=== PATIENT | male | born 1960 | race Caucasian/White ===

== ENCOUNTER 2020-04-09 11:08 | Emergency (ER) | payer OTHER ==
[2020-04-09] MEDS ORDERED: ALBUTEROL 2.5 MG/3 ML NEB SOL ONE ×2 (13:27)
[2020-04-09] MEDS ORDERED: NA CHLORIDE 0.9% 1,000 ML ONE (13:27)
[2020-04-09] MEDS ORDERED: ACETAMINOPHEN 500 MG TAB ONE (13:27)
[2020-04-09] MEDS ORDERED: ALBUTEROL INHALER 60 PUFF/8 GM IH ONE (14:14)
--- NOTE | 2020-04-09 14:19 | RAD REPORT ---
EXAM DESCRIPTION: RAD - Chest Single View - 04/09/2020 2:04 pm CLINICAL HISTORY: shortness of breath COMPARISON: None TECHNIQUE: AP portable chest image was obtained 04/09/2020 2:04 pm . FINDINGS: No dense mass or consolidation. Hazy opacification is seen lower left lung field. As a bas bairon study early left lung base pneumonia cannot be excluded. Failure and volume overload are not connor spected. Heart and vasculature are normal. No measurable pleural effusion and no pneumothorax. No acute bony abnormality seen. No acute aortic findings suspected. IMPRESSION: Baseline study showing hazy left base opacification suspicious for early infiltrate.
[2020-04-09 14:39] LABS: Absolute Lymphocytes (CBC) 0.6 K/uL (0.7-4.9); Basophils % 0.3 % (0-1.3); Hematocrit 46.1 % (39.6-49.0); Lymphocytes % 5.2 % (15.3-44.8); MPV 7.9 fL (7.6-11.3); RBC Red Blood Cell Count 5.16 M/uL (4.33-5.43)
[2020-04-09 14:58] LABS: Albumin 3.3 g/dL (3.4-5.0); Bilirubin Total 0.4 mg/dL (0.2-1.0); Potassium 3.7 mmol/L (3.5-5.1); Protein, Total 7.6 g/dL (6.4-8.2)
--- NOTE | 2020-04-09 15:20 | ER ---
Nurse's Notes [facility] Name: Richard Dawson Age: 60 yrs Sex: Male : 1960 Arrival Date: 04/09/2020 Time: 11:14 Bed 19 Private MD: Jarred Pablo H Diagnosis: Pneumonia Presentation: 04/09 11:37 Chief complaint: Patient states: taste is off, difficulty breathing, headache and fever ss that began 5 days ago. Pt reports his is sick too and was swabbed for COVID, but does not have her results back yet. Coronavirus screen: Proceed with normal triage. Patient denies a cough. Patient reports shortness of breath or difficulty breathing. Patient reports a measured and/or subjective temperature greater than 100.4F. Patient denies travel on a cruise ship or to a country the [facility] currently lists as an affected area. unknown contact. 's results are pending. Ebola Screen: Patient denies exposure to infectious person. Patient denies travel to an Ebola-affected area in the 21 days before illness onset. Initial Sepsis Screen: Does the patient meet any 2 criteria? Temp <36.0*C (96.8*F)) or > 38.3*C (100.9*F). HR > 90 bpm. Does the patient have a suspected source of infection? No. Patient's initial sepsis screen is negative. Risk Assessment: Do you want to hurt yourself or someone else? Patient reports no desire to harm self or others. Onset of symptoms was April 05, 2020. 11:37 Method Of Arrival: Ambulatory ss 11:37 Acuity: JENELLE 3 ss Triage Assessment: 15:00 Respiratory: the patient has moderate shortness of breath. Historical: - Allergies: 11:41 No Known Allergies; ss - Home Meds: 11:41 None [Active]; ss - PMHx: 11:41 None; ss - PSHx: 11:41 foot; hemrrhoidectomy; ss - Immunization history:: Adult Immunizations up to date. - Social history:: Smoking status: Patient denies any tobacco usage or history of. Screenin:00 Abuse screen: Denies threats or abuse. Nutritional screening: No deficits noted. Tuberculosis screening: No symptoms or risk factors identified. Fall Risk None identified. Assessment: 12:00 General: Appears in no apparent distress. Behavior is calm, cooperative, appropriate ah for age. Pain: Denies pain. Neuro: Level of Consciousness is awake, alert, obeys commands, Oriented to person, place, time, situation, Appropriate for age. Cardiovascular: Capillary refill < 3 seconds Patient's skin is warm and dry. Rhythm is sinus tachycardia. Respiratory: Reports shortness of breath wheezing Airway is patent Respiratory effort is even, labored, Respiratory pattern is regular, symmetrical, Breath sounds are coarse Onset: The symptoms/episode began/occurred 1 week. Derm: Skin is intact, is healthy with good turgor. 13:00 Reassessment: Patient and/or family updated on plan of care and expected duration. Pain ah level reassessed. No needs voiced at this time. 14:00 Reassessment: Patient and/or family updated on plan of care and expected duration. Pain ah level reassessed. Awaiting on results from labs and radiology. Vital Signs: 11:37 BP 124 / 87; Pulse 105; Resp 18; Temp 100.6(TE); Pulse Ox 98% on R/A; Weight 107.05 kg; ss Pain 5/10; ED Course: 11:14 Patient arrived in ED. mr 11:14 Jarred Pablo DO is Private Physician. mr 11:40 Triage completed. ss 11:41 Arm band placed on right wrist. ss 12:15 Inserted saline lock: 20 gauge in left antecubital area, using aseptic technique. 12:33 Umesh Mcclendon PA is PHCP. [facility] 12:33 Brett Mao MD is Attending Physician. [facility] 13:15 Jackie Vizcaino, RN is Primary Nurse. 14:04 Chest Single View XRAY In Process Unspecified. EDMS 14:30 Patient has correct armband on for positive identification. Bed in low position. Call light in reach. Pulse ox on. NIBP on. 15:00 IV discontinued, intact, bleeding controlled, No redness/swelling at site. Pressure ah dressing applied. 15:19 Jarred Pablo DO is Referral Physician. [facility] 15:53 No provider procedures requiring assistance completed. Administered Medications: 13:31 Not Given (inhaler instead): Albuterol 2.5 mg Inhalation every 20 minutes x3 14:20 Drug: Tylenol 1000 mg Route: PO; 15:31 Follow up: Response: No adverse reaction 14:25 Drug: NS 0.9% 1000 ml Route: IV; Rate: 1 bolus; Site: left antecubital; 15:32 Follow up: Response: No adverse reaction; IV Status: Completed infusion 14:27 Drug: Albuterol HFA Inhaler 2 puffs Route: Inhalation; 15:31 Follow up: Response: No adverse reaction 15:31 Drug: Rocephin 1 grams Route: IV; Rate: calculated rate; Site: left antecubital; 16:45 Follow up: Response: No adverse reaction; IV Status: Completed infusion Outcome: 15:15 Discharged to home ambulatory. 15:15 Condition: good 15:15 Discharge instructions given to patient, Instructed on discharge instructions, follow up and referral plans. Demonstrated understanding of instructions, follow-up care, medications, Prescriptions given X 2. 15:19 Discharge ordered by MD. moreno 15:56 Patient left the ED. Addendum: 04/14/2020 17:30 Addendum: COVID-19 Result: Positive result giiven to ED physician to notify pt. b Physician: Aldair Fischer MD Physician was able to contact pt and pt was notified of positive COVID-19 swab result. Physician answered pt questions. Other: [facility] [facility] called into [facility] per Dr. Fischer. Signatures: Dispatcher [employer] EDMS Umesh Mcclendon PA PA jmm Rivera, Mary mr Smirch, Shelby, RN RN Chelita Taylor RN RN Jackie Vizcaino RN RN Corrections: (The following items were deleted from the chart) 18:30 17:30 Addendum: COVID-19 Result: Positive result giiven to ED physician to notify pt. Physician: Aldair Fischer MD Other: [facility] called into [facility] per Dr. Fischer
--- NOTE | 2020-04-09 15:20 | EDPHYS ---
Physician Documentation [facility] Name: Richard Dawson Age: 60 yrs Sex: Male : 1960 Arrival Date: 04/09/2020 Time: 11:14 Bed 19 Private MD: Jarred Pablo H ED Physician Brett Mao HPI: 04/09 13:02 This 60 yrs old Male presents to ER via Ambulatory with complaints of Fever, jmm Breathing Difficulty. 13:02 The patient reports fever, not measured (subjective). Onset: The symptoms/episode jmm began/occurred gradually, 5 day(s) ago. Modifying factors: The patient has had contact with sick spouse. Associated signs and symptoms: Pertinent positives: cough, shortness of breath. This is a 60 year old male with no chronic medical conditions that presents to the ED with complaints of shortness of breath, cough beginning approx 5 days ago. recently diagnosed with covid-19. . Historical: - Allergies: 11:41 No Known Allergies; ss - Home Meds: 11:41 None [Active]; ss - PMHx: 11:41 None; ss - PSHx: 11:41 foot; hemrrhoidectomy; ss - Immunization history:: Adult Immunizations up to date. - Social history:: Smoking status: Patient denies any tobacco usage or history of. ROS: 13:02 Cardiovascular: Negative for chest pain, palpitations, and edema, Abdomen/GI: Negative jmm for abdominal pain, nausea, vomiting, diarrhea, and constipation, Back: Negative for injury and pain. 13:02 Constitutional: Positive for body aches, chills, fever. 13:02 Respiratory: Positive for cough. 13:02 Neuro: Positive for headache. 13:02 All other systems are negative. Exam: 13:02 Constitutional: This is a well developed, well nourished patient who is awake, alert, jmm and in no acute distress. Head/Face: atraumatic. Eyes: EOMI, no conjunctival erythema appreciated ENT: Moist Mucus Membranes Neck: Trachea midline, Supple Chest/axilla: Normal chest wall appearance and motion. Cardiovascular: Regular rate and rhythm. No edema appreciated Respiratory: Normal respirations, no respiratory distress appreciated Abdomen/GI: Non distended, soft Back: Normal ROM Skin: General appearance color normal MS/ Extremity: Moves all extremities, no obvious deformities appreciated, no edema noted to the lower extremities Neuro: Awake and alert, normal gait Psych: Behavior is normal, Mood is normal, Patient is cooperative and pleasant Vital Signs: 11:37 BP 124 / 87; Pulse 105; Resp 18; Temp 100.6(TE); Pulse Ox 98% on R/A; Weight 107.05 kg; ss Pain 5/10; MDM: 13:00 Patient medically screened. [facility] 15:18 Data reviewed: vital signs, nurses notes. Counseling: I had a detailed discussion with [facility] the patient and/or guardian regarding: the historical points, exam findings, and any diagnostic results supporting the discharge/admit diagnosis, lab results, radiology results, the need for outpatient follow up, to return to the emergency department if symptoms worsen or persist or if there are any questions or concerns that arise at home. ED course: Patient is alert and non toxic in appearance in the ED. Patient is advised to follow up with pcp and otherwise given strict return precautions. Patient understood and agrees with the plan of care. . 04/09 13:01 Order name: CBC with Diff; Complete Time: 15:01 [facility] 04/09 13:01 Order name: CMP; Complete Time: 15:01 [facility] 04/09 13:01 Order name: Procalcitonin; Complete Time: 15:18 [facility] 04/09 13:01 Order name: Lactate; Complete Time: 15:18 [facility] 04/09 13:01 Order name: Blood Culture Adult (2) [facility] 04/09 13:01 Order name: COVID-19 [facility] 04/09 13:01 Order name: Chest Single View XRAY; Complete Time: 14:20 [facility] 04/09 13:01 Order name: Saline Lock; Complete Time: 14:27 [facility] 04/09 13:01 Order name: Flu; Complete Time: 14:20 [facility] Administered Medications: 13:31 Not Given (inhaler instead): Albuterol 2.5 mg Inhalation every 20 minutes x3 ss 14:20 Drug: Tylenol 1000 mg Route: PO; 15:31 Follow up: Response: No adverse reaction 14:25 Drug: NS 0.9% 1000 ml Route: IV; Rate: 1 bolus; Site: left antecubital; 15:32 Follow up: Response: No adverse reaction; IV Status: Completed infusion 14:27 Drug: Albuterol HFA Inhaler 2 puffs Route: Inhalation; 15:31 Follow up: Response: No adverse reaction 15:31 Drug: Rocephin 1 grams Route: IV; Rate: calculated rate; Site: left antecubital; 16:45 Follow up: Response: No adverse reaction; IV Status: Completed infusion Disposition: 19:10 Co-signature as Attending Physician, Brett Mao MD. mi2 Disposition: 04/09/20 15:19 Discharged to Home. Impression: Pneumonia. - Condition is Stable. - Discharge Instructions: Community-Acquired Pneumonia, Adult. - Prescriptions for Zithromax Z- Sukhjinder 250 mg Oral Tablet - take 1 tablet by ORAL route as directed for 5 days Day 1 - take two (2) tablets one time. Day 2, 3, 4 , 5 take one (1) tablet once daily.; 6 tablet. Albuterol Sulfate 90 mcg/actuation - inhale 1-2 puff by INHALATION route every 4-6 hours; 1 Inhaler. - Medication Reconciliation Form, Thank You Letter, Antibiotic Education, Prescription Opioid Use form. - Follow up: Samy, DO Jarred; When: 2 - 3 days; Reason: Recheck today's complaints, Continuance of care, Re-evaluation by your physician. Signatures: Dispatcher [employer] EDMS Umesh Mcclendon PA PA jmm Smirch, Shelby, RN RN Brett Mao MD MD [facility] Jackie Vizcaino RN RN Corrections: (The following items were deleted from the chart) 15:56 15:19 04/09/2020 15:19 Discharged to Home. Impression: Pneumonia. Condition is Stable. Forms are Medication Reconciliation Form, Thank You Letter, Antibiotic Education, Prescription Opioid Use. Follow up: Jarred Pablo; When: 2 - 3 days; Reason: Recheck today's complaints, Continuance of care, Re-evaluation by your physician. tiffanie
[2020-04-09] MEDS ORDERED: CEFTRIAXONE/SWI 1gm 1 GM/10 ML SYR ONE (15:32)
[2020-04-09 16:00] VITALS: BP 124/87; TEMP 100.6; O2SAT 98
== END 2020-04-09 15:56 | disposition home or self-care (01) ==
LOC: ER 11:08
DX: U07.1 COVID-19 (principal); J12.89 Other viral pneumonia
CPT/HCPCS: 96365; 96361; 87040 ×2; 85025; 36415; 83605; 80053; 84145; 87804 ×2; 71045; 99285; U0001; J0696; J7030

== ENCOUNTER 2020-04-16 09:19 | Inpatient (IN) | payer OTHER ==
[2020-04-16] MEDS ORDERED: LEVALBUTEROL 1.25 MG/3 ML NEB ONE (10:18)
[2020-04-16] MEDS ORDERED: AZITHROMYCIN 250 MG TAB ONE (10:18)
[2020-04-16] MEDS ORDERED: NA CHLORIDE 0.9% 100 ML IV ONE (10:18)
[2020-04-16] MEDS ORDERED: dexAMETHasone 10 MG/ML VIAL ONE (10:18)
[2020-04-16] MEDS ORDERED: CEFTRIAXONE/SWI 1gm 1 GM/10 ML SYR ONE (10:19)
--- NOTE | 2020-04-16 10:35 | RAD REPORT ---
EXAM DESCRIPTION: RAD - Chest Single View - 04/16/2020 10:25 am CLINICAL HISTORY: DYSPNEA Chest pain. COMPARISON: Chest Single View dated 04/09/2020 FINDINGS: Portable technique limits examination quality. Extensive bilateral pulmonary opacities are present probably representing multifocal pneumonia. The h eart is normal in size. No displaced fractures. IMPRESSION: Extensive bilateral multifocal pneumonia.
[2020-04-16 11:19] LABS: Absolute Lymphocytes (CBC) 1.1 K/uL (0.7-4.9); Basophils % 1.1 % (0-1.3); Hematocrit 43.8 % (39.6-49.0); Lymphocytes % 9.1 % (15.3-44.8); MPV 7.6 fL (7.6-11.3); RBC Red Blood Cell Count 4.88 M/uL (4.33-5.43)
[2020-04-16 11:22] LABS: Protime INR 1.4
--- NOTE | 2020-04-16 11:35 | EDPHYS ---
Physician Documentation [facility] Name: Richard Dawson Age: 60 yrs Sex: Male : 1960 Arrival Date: 04/16/2020 Time: 09:20 Bed 16 Private MD: Jarred Pablo H ED Physician Aldair Fischer HPI: 04/16 10:00 This 60 yrs old Male presents to ER via Ambulatory with complaints of kdr Shortness Of Breath - covid+. 10:00 The patient has shortness of breath at rest, with light activity. Onset: The kdr symptoms/episode began/occurred gradually, 1 week(s) ago. Duration: The symptoms are continuous, and are steadily getting worse. The patient's shortness of breath is aggravated by coughing, exertion, light activity, talking, walking, is alleviated by nothing. Historical: - Allergies: 09:40 No Known Allergies; ss - Home Meds: 09:40 None [Active]; ss - PMHx: :40 None; ss - PSHx: 09:40 foot; hemrrhoidectomy; ss - Immunization history:: Adult Immunizations up to date. - Social history:: Smoking status: Patient denies any tobacco usage or history of. ROS: 11:35 Constitutional: Negative for fever, chills, and weight loss, Eyes: Negative for injury, kdr pain, redness, and discharge, Neck: Negative for injury, pain, and swelling, Cardiovascular: Negative for chest pain, palpitations, and edema, Abdomen/GI: Negative for abdominal pain, nausea, vomiting, diarrhea, and constipation, Back: Negative for injury and pain, : Negative for injury, bleeding, discharge, and swelling, MS/Extremity: Negative for injury and deformity, Skin: Negative for injury, rash, and discoloration, Neuro: Negative for headache, weakness, numbness, tingling, and seizure activity. Psych: Negative for depression, anxiety, suicide ideation, homicidal ideation, and hallucinations, Allergy/Immunology: Negative for hives, rash, and allergies, Endocrine: Negative for neck swelling, polydipsia, polyuria, polyphagia, and marked weight changes, Hematologic/Lymphatic: Negative for swollen nodes, abnormal bleeding, and unusual bruising. 11:35 Respiratory: Positive for cough, with no reported sputum, dyspnea on exertion, shortness of breath, at rest. wheezing, inspiratory. Exam: 11:35 Constitutional: This is a well developed, well nourished patient who is awake, alert, kdr and in no acute distress. Head/Face: Normocephalic, atraumatic. Eyes: Pupils equal round and reactive to light, extra-ocular motions intact. Lids and lashes normal. Conjunctiva and sclera are non-icteric and not injected. Cornea within normal limits. Periorbital areas with no swelling, redness, or edema. Neck: Trachea midline, no thyromegaly or masses palpated, and no cervical lymphadenopathy. Supple, full range of motion without nuchal rigidity, or vertebral point tenderness. No Meningismus. Chest/axilla: Normal chest wall appearance and motion. Nontender with no deformity. No lesions are appreciated. Cardiovascular: Regular rate and rhythm with a normal S1 and S2. No gallops, murmurs, or rubs. Normal PMI, no JVD. No pulse deficits. Abdomen/GI: Soft, non-tender, with normal bowel sounds. No distension or tympany. No guarding or rebound. No evidence of tenderness throughout. Back: No spinal tenderness. No costovertebral tenderness. Full range of motion. Skin: Warm, dry with normal turgor. Normal color with no rashes, no lesions, and no evidence of cellulitis. MS/ Extremity: Pulses equal, no cyanosis. Neurovascular intact. Full, normal range of motion. Neuro: Awake and alert, GCS 15, oriented to person, place, time, and situation. Cranial nerves II-XII grossly intact. Motor strength 5/5 in all extremities. Sensory grossly intact. Cerebellar exam normal. Normal gait. Psych: Awake, alert, with orientation to person, place and time. Behavior, mood, and affect are within normal limits. 11:35 Respiratory: mild respiratory distress is noted, Respirations: labored breathing, that is mild, Breath sounds: rales, that are mild, are scattered, rhonchi, are not appreciated, stridor, is not appreciated. 15:14 ECG was reviewed by the Attending Physician. kdr Vital Signs: 09:36 BP 120 / 95; Pulse 107; Resp 20; Temp 98.7(TE); Pulse Ox 90% on R/A; Weight 99.79 kg; ss Height 5 ft. 9 in. (175.26 cm); Pain 0/10; 12:00 BP 125 / 67; Pulse 104; Resp 28; Pulse Ox 90% on 2 lpm NC; bp 12:57 BP 115 / 85; Pulse 105; Resp 31; Pulse Ox 86% on R/A; bp 15:00 BP 109 / 84; Pulse 92; Resp 29; Pulse Ox 92% on 4 lpm NC; bp 16:30 BP 118 / 88; Pulse 90; Resp 61; Pulse Ox 92% on 3 lpm NC; bp 18:00 BP 128 / 86; Pulse 93; Resp 31; Pulse Ox 90% on 3 lpm NC; bp 19:07 BP 118 / 83; Pulse 91; Resp 26; Temp 98.7; Pulse Ox 91% on 4 lpm NC; mg2 20:19 BP 121 / 88; Pulse 94; Resp 24; Temp 98.7; Pulse Ox 91% on 4 lpm NC; mg2 09:36 Body Mass Index 32.49 (99.79 kg, 175.26 cm) ss MDM: 11:35 Patient medically screened. kdr 11:35 Data reviewed: vital signs, nurses notes, lab test result(s), radiologic studies. kdr Counseling: I had a detailed discussion with the patient and/or guardian regarding: the historical points, exam findings, and any diagnostic results supporting the discharge/admit diagnosis, lab results, radiology results, the need for further work-up and treatment in the hospital. Physician consultation: Dandy Smith DO regarding admission, and will see patient in ED. 04/16 09:47 Order name: Blood Culture Adult (2) eb 04/16 09:47 Order name: BMP; Complete Time: 12:27 eb 04/16 09:47 Order name: C-Reactive Protein; Complete Time: 12:27 eb 04/16 09:47 Order name: CBC with Diff; Complete Time: 11:33 eb 04/16 11:33 Interpretation: MCV 89.8. kdr 04/16 09:47 Order name: COVID-19 eb 04/16 09:47 Order name: D-Dimer; Complete Time: 11:33 eb 04/16 09:47 Order name: Ferritin; Complete Time: 12:27 eb 04/16 09:47 Order name: Flu; Complete Time: 12:27 eb 04/16 09:47 Order name: Lactate; Complete Time: 12:27 04/16 09:47 Order name: LFT's; Complete Time: 12:27 04/16 09:47 Order name: Lipase; Complete Time: 12:27 04/16 09:47 Order name: Procalcitonin; Complete Time: 12:27 04/16 09:47 Order name: PT-INR; Complete Time: 11:33 04/16 09:47 Order name: Ptt, Activated; Complete Time: 11:33 04/16 09:47 Order name: Strep; Complete Time: 12:27 04/16 09:47 Order name: Troponin (emerg Dept Use Only); Complete Time: 12:27 04/16 09:47 Order name: Urine Microscopic Only 04/16 09:47 Order name: CXR XRAY; Complete Time: 11:33 04/16 09:47 Order name: EKG; Complete Time: 09:48 04/16 09:47 Order name: Cardiac monitoring; Complete Time: 11:24 04/16 09:47 Order name: Document PUI#; Complete Time: 18:07 04/16 11:30 Order name: CT Chest For PE Angio; Complete Time: 12:27 [facility] 04/16 12:24 Order name: Throat Culture [facility] 04/16 18:22 Order name: Urine Dipstick--Ancillary (enter results) 04/16 18:30 Order name: Urine Dipstick-Ancillary [facility] 04/16 09:47 Order name: Droplet/Contact Precautions; Complete Time: 09:53 04/16 09:47 Order name: EKG - Nurse/Tech; Complete Time: 11:24 04/16 09:47 Order name: IV Start; Complete Time: 11:24 04/16 09:47 Order name: Labs collected and sent; Complete Time: 11:24 04/16 09:47 Order name: Notify Health Dept [phone]/ ; Complete Time: 18:07 04/16 09:47 Order name: O2 Per Protocol; Complete Time: 09:53 04/16 09:47 Order name: O2 Sat Monitoring; Complete Time: 09:53 04/16 09:47 Order name: Urine Dipstick-Ancillary (obtain specimen); Complete Time: 18:07 eb EC:14 Rate is 85 beats/min. Rhythm is regular, Normal Sinus Rhythm. QRS Moran is Normal. Left kdr axis deviation noted. NM interval is normal. QRS interval is normal. Clinical impression: NSR w/ Non-specific ST/T Changes. Administered Medications: 11:05 Drug: Decadron - Dexamethasone 10 mg Route: IVP; Site: left wrist; bp 11:41 Follow up: Response: No adverse reaction bp 11:05 Drug: Rocephin - (cefTRIAXone) 1 grams Route: IVPB; Infused Over: 30 mins; Site: left bp wrist; 11:41 Follow up: IV Status: Completed infusion; IV Intake: 20ml bp 11:05 Drug: Zithromax 500 mg Route: PO; bp 11:42 Follow up: Response: No adverse reaction bp 11:05 Drug: Xopenex (3) 1.25 mg Route: Inhalation; bp 11:45 Drug: Lovenox 1 mg/kg Route: Sub-Q; Site: left lower abdomen; bp 12:32 Follow up: Response: No adverse reaction bp Disposition: 04/16/20 11:35 Hospitalization ordered by Dandy Smith for Inpatient Admission. Preliminary diagnosis is COVID 19 +, multi-focal pneumonia. - Bed requested for Telemetry/MedSurg (Inpatient). - Status is Inpatient Admission. mg2 - Condition is Fair. - Problem is an ongoing problem. - Symptoms have worsened. Signatures: Dispatcher [employer] EDMS Aldair Fischer MD MD kdr Lindsay Fragoso RN RN Jose R Zhang FNP-C [employer] Ravinder Gunderson, KASEY RN bp Baylee Hays Saeed Zavala RN RN mg2 Corrections: (The following items were deleted from the chart) 09:54 09:47 Richardson ordered. eb bp 18:50 11:35 Hospitalization Ordered by Dandy Smith DO for Inpatient Admission. Preliminary eb diagnosis is COVID 19 +, multi-focal pneumonia. Bed requested for Telemetry/MedSurg (Inpatient). Status is Inpatient Admission. Condition is Fair. Problem is an ongoing problem. Symptoms have worsened. kdr 21:01 18:50 04/16/2020 11:35 Hospitalization Ordered by Dandy Prezas DO for Inpatient mg2 Admission. Preliminary diagnosis is COVID 19 +, multi-focal pneumonia. Bed requested for Telemetry/MedSurg (Inpatient). Status is Inpatient Admission. Condition is Fair. Problem is an ongoing problem. Symptoms have worsened. eb
--- NOTE | 2020-04-16 11:35 | ER ---
Nurse's Notes [facility] Name: Richard Dawson Age: 60 yrs Sex: Male : 1960 Arrival Date: 04/16/2020 Time: 09:20 Bed 16 Private MD: Jarred Pablo H Diagnosis: COVID 19 +, multi-focal pneumonia Presentation: 04/16 09:36 Chief complaint: Patient states: shortness of breath that x 1 week. Pt was told Sunday his swab was positive for COVID-19. Pt reports his shortness of breath is worse. Coronavirus screen: Surgical mask placed on patient. Patient moved to private room, placed in contact and droplet isolation with eye protection until further assessment. Ebola Screen: Patient denies exposure to infectious person. Patient denies travel to an Ebola-affected area in the 21 days before illness onset. Initial Sepsis Screen: Does the patient meet any 2 criteria? No. Patient's initial sepsis screen is negative. Does the patient have a suspected source of infection? No. Patient's initial sepsis screen is negative. Risk Assessment: Do you want to hurt yourself or someone else? Patient reports no desire to harm self or others. Onset of symptoms was April 08, 2020. 09:36 Method Of Arrival: Ambulatory ss 09:36 Acuity: JENELLE 3 ss Triage Assessment: 09:45 General: Appears in no apparent distress. uncomfortable, ill, Behavior is cooperative, bp appropriate for age, anxious. Pain: Denies pain. EENT: No deficits noted. Neuro: No deficits noted. Cardiovascular: Rhythm is regular. Respiratory: Reports shortness of breath cough that is. Respiratory: Onset: The symptoms/episode began/occurred at an unknown time. the patient has moderate shortness of breath. GI: No signs and/or symptoms were reported involving the gastrointestinal system. : No signs and/or symptoms were reported regarding the genitourinary system. Derm: No deficits noted. Musculoskeletal: No deficits noted. Historical: - Allergies: 09:40 No Known Allergies; ss - Home Meds: 09:40 None [Active]; ss - PMHx: 09:40 None; ss - PSHx: 09:40 foot; hemrrhoidectomy; ss - Immunization history:: Adult Immunizations up to date. - Social history:: Smoking status: Patient denies any tobacco usage or history of. Screenin:00 Abuse screen: Denies threats or abuse. Denies injuries from another. Nutritional bp screening: No deficits noted. Tuberculosis screening: No symptoms or risk factors identified. Fall Risk None identified. Assessment: 09:45 General: SEE TRIAGE NOTE. Cardiovascular: Rhythm is sinus tachycardia. bp 12:00 Reassessment: PT RETURNED FROM CT. ADMIT INITIATED. bp 12:58 Reassessment: PT SEEN BY HOSPITALIST. bp 15:00 Reassessment: ADMIT IN PROCESS. VS STABLE ON MONITOR. bp 16:30 Reassessment: ADMIT REMAINS IN PROCESS. VS STABLE ON MONITOR. PT REQUIRING 4LNC TO bp REMAIN >90% SPO2. 18:00 Respiratory: Airway is patent Respiratory effort is even, labored, Breath sounds are bp coarse bilaterally. 19:56 Reassessment: Patient appears in no apparent distress at this time. Patient and/or mg2 family updated on plan of care and expected duration. Pain level reassessed. Patient is alert, oriented x 3, equal unlabored respirations, skin warm/dry/pink. Called 4th floor and charge nurse said the primary nurse will call back to receive report. Vital Signs: 09:36 BP 120 / 95; Pulse 107; Resp 20; Temp 98.7(TE); Pulse Ox 90% on R/A; Weight 99.79 kg; ss Height 5 ft. 9 in. (175.26 cm); Pain 0/10; 12:00 BP 125 / 67; Pulse 104; Resp 28; Pulse Ox 90% on 2 lpm NC; bp 12:57 BP 115 / 85; Pulse 105; Resp 31; Pulse Ox 86% on R/A; bp 15:00 BP 109 / 84; Pulse 92; Resp 29; Pulse Ox 92% on 4 lpm NC; bp 16:30 BP 118 / 88; Pulse 90; Resp 61; Pulse Ox 92% on 3 lpm NC; bp 18:00 BP 128 / 86; Pulse 93; Resp 31; Pulse Ox 90% on 3 lpm NC; bp 19:07 BP 118 / 83; Pulse 91; Resp 26; Temp 98.7; Pulse Ox 91% on 4 lpm NC; mg2 20:19 BP 121 / 88; Pulse 94; Resp 24; Temp 98.7; Pulse Ox 91% on 4 lpm NC; mg2 09:36 Body Mass Index 32.49 (99.79 kg, 175.26 cm) ED Course: 09:20 Patient arrived in ED. as 09:20 Jarred Pablo DO is Private Physician. as 09:28 Ravinder Gunderson, KASEY is Primary Nurse. bp 09:28 Aldair Fischer MD is Attending Physician. kdr 09:39 Triage completed. ss 09:40 Arm band placed on right wrist. ss 10:00 Patient has correct armband on for positive identification. Bed in low position. Call bp light in reach. Side rails up X2. 10:24 CXR XRAY In Process Unspecified. EDMS 11:05 Inserted saline lock: 20 gauge in left wrist, using aseptic technique. Blood collected. bp 11:34 Dandy Smith DO is Hospitalizing Provider. kdr 11:49 CT Chest For PE Angio In Process Unspecified. EDMS 18:18 No provider procedures requiring assistance completed. Patient admitted, IV remains in bp place. 20:50 Primary Nurse role handed off by Ravinder Gunderson RN sg 20:52 Nataliia Uribe RN is Primary Nurse. ls4 Administered Medications: 11:05 Drug: Decadron - Dexamethasone 10 mg Route: IVP; Site: left wrist; bp 11:41 Follow up: Response: No adverse reaction bp 11:05 Drug: Rocephin - (cefTRIAXone) 1 grams Route: IVPB; Infused Over: 30 mins; Site: left bp wrist; 11:41 Follow up: IV Status: Completed infusion; IV Intake: 20ml bp 11:05 Drug: Zithromax 500 mg Route: PO; bp 11:42 Follow up: Response: No adverse reaction bp 11:05 Drug: Xopenex (3) 1.25 mg Route: Inhalation; bp 11:45 Drug: Lovenox 1 mg/kg Route: Sub-Q; Site: left lower abdomen; bp 12:32 Follow up: Response: No adverse reaction bp Intake: 11:41 IV: 20ml; Total: 20ml. bp Outcome: 11:35 Decision to Hospitalize by Provider. kdr 20:19 Admitted to Tele accompanied by tech, via wheelchair, room 425, with oxygen, with mg2 chart, Report called to KASEY Rubalcava 20:19 Condition: stable 20:19 Instructed on the need for admit, Demonstrated understanding of instructions. 21:01 Patient left the ED. mg2 Signatures: Dispatcher [employer] EDMS Talib Bernabe RN RN sg Aldair Fischer MD MD kdr Martinez, Amelia as Smirch, Shelby, RN RN ss Ravinder Gunderson RN RN bp Saeed Zavala RN RN mg2 Nataliia Uribe RN RN ls4 Corrections: (The following items were deleted from the chart) 12:58 12:00 BP 125 / 67; Pulse 104bpm; Resp 28bpm; Pulse Ox 90% RA; bp bp 18:19 18:07 Admitted to ER Hold. Please see [facility] for further documentation. bp bp 18:19 18:07 Condition: stable bp bp 18:19 18:07 Instructed on the need for admit, bp bp 18:19 18:00 Reassessment: PT ER HOLD, SEE [employer] bp bp
[2020-04-16 11:58] LABS: ALT/SGPT 48 U/L (12-78); AST/SGOT 41 U/L (15-37); Albumin 2.2 g/dL (3.4-5.0); Alkaline Phosphatase 122 U/L (45-117); BUN Blood Urea Nitrogen 19 mg/dL (7-18); Bicarbonate 25 mmol/L (21-32); Bilirubin Direct 0.2 mg/dL (0-0.2); Bilirubin Total 0.5 mg/dL (0.2-1.0); Ferritin 2200.2 ng/mL (26-388); Glucose Level 103 mg/dL (74-106); Lipase 343 U/L (73-393); Potassium 3.4 mmol/L (3.5-5.1); Sodium Level 135 mmol/L (136-145); Troponin (Emerg Dept Use Only) < 0.02 ng/mL (0.0-0.045)
--- NOTE | 2020-04-16 12:04 | RAD REPORT ---
EXAM DESCRIPTION: CT - Chest For Pe Angio - 04/16/2020 11:49 am CLINICAL HISTORY: Chest pain. Cough;Dyspnea COMPARISON: No comparisonsChest Single View dated 04/16/2020 TECHNIQUE: CT angiogram of the pulmonary arteries was performed with MIP. All CT scans are performed using dose optimization technique as appropriate and may include automated exposure control or mA/KV adjustment according to patient size. FINDINGS: No evidence of pulmonary thromboembolism. No acute aortic finding demonstrated. Extensive bilateral airspace/alveolar lung opacities are present compatible with pneumonia or ARDS. No significant pericardial or pleural fluid. No concerning bony finding. IMPRESSION: No evidence of pulmonary thromboembolism. Extensive bilateral alveolar lung opacities are present likely representing bilateral pneumonia or AR DS.
[2020-04-16] MEDS ORDERED: ENOXAPARIN 100 MG/ML SYR SQ ONE (12:15)
--- NOTE | 2020-04-16 13:49 | P.HP ---
Certification for Inpatient Patient admitted to: Inpatient With expected LOS: <2 Midnights Patient will require the following post-hospital care: None Practitioner: I am a practitioner with admitting privileges, knowledge of patient current condition, hospital course, and medical plan of care. Services: Services provided to patient in accordance with Admission requirements found in Title 42 Section 412.3 of the Code of Federal Regulations <Jose R Zhang - Last Filed: 04/16/20 13:42> Patient History Date of Service: 04/16/20 Reason for admission: COVID-pneumonia, hypoxia History of Present Illness: 60-year-old male with no medical history presents emergency department with worsening shortness of breath. Patient reports that he tested positive for COVID-19 within last week at another facility. Patient reports that he has been progressively short of breath since then with worsening cough. Patient also has had fever at home. Upon presentation to the emergency department patient's oxygen saturation was around 90%. Patient extensive multifocal pneumonia on CT and chest x-ray. Patient received antibiotics, steroids, breathing treatments, auction emergency department. ED provider wishes to admit patient for further evaluation and management. When I saw the patient in the emergency department he was on 3 L per nasal cannula. I turn the oxygen off and he was 86% on room air while resting in the stretcher. Patient be admitted for further evaluation management. - Past Medical/Surgical History Has patient received pneumonia vaccine in the past: No Diabetic: No -: none -: none Psychosocial/ Personal History: Patient lives at home with - Family History Family History: Reviewed- Non-Contributory - Social History Smoking Status: Never smoker Alcohol use: Yes CD- Drugs: No Caffeine use: No Place of Residence: Home <Jose R Zhang - Last Filed: 04/16/20 13:42> Date of Service: 04/16/20 Home medications list reviewed: Yes <Dandy Smith - Last Filed: 04/16/20 18:42> Allergies povidone-iodine [From Betadine] Allergy (Verified 12/08/11 20:14) Hives/Rash soap [From Betadine] Allergy (Verified 12/08/11 20:14) Hives/Rash Review of Systems General: Fever, Weakness, Malaise Eyes: Unremarkable ENT: Unremarkable Respiratory: Cough, Shortness of Breath, SOB with Excertion Cardiovascular: Unremarkable Gastrointestinal: Unremarkable Genitourinary: Unremarkable Musculoskeletal: Unremarkable Integumentary: Unremarkable Neurological: Unremarkable Lymphatics: Unremarkable <Jose R Zhang - Last Filed: 04/16/20 13:42> Physical Examination - Physical Exam General: Alert, In no apparent distress, Oriented x3 HEENT: Atraumatic, Normocephalic Neck: Supple Respiratory: Crackles/rales, Expiratory wheezes, Other (Tachypneic) Cardiovascular: Normal pulses, Regular rate/rhythm, Normal S1 S2 Capillary refill: <2 Seconds Gastrointestinal: Normal bowel sounds, Soft and benign Musculoskeletal: No contractures, No erythema, No tenderness Integumentary: No tenderness/swelling, No erythema, No warmth Neurological: Normal gait, Normal strength at 5/5 x4 extr, Normal tone, Sensation intact - Studies Laboratory Data (last 24 hrs) 04/16/20 11:05: PT 16.4 H, INR 1.40, APTT 30.4 04/16/20 11:05: WBC 12.3 H D, Hgb 14.6, Hct 43.8, Plt Count 563 H D 04/16/20 11:05: Sodium 135 L, Potassium 3.4 L, BUN 19 H, Creatinine 0.80, Glucose 103, Total Bilirubin 0.5, AST 41 H, ALT 48, Alkaline Phosphatase 122 H, Lipase 343 Microbiology Data (last 24 hrs): 04/16/20 10:40 Nasopharnyx Influenza Type A Antigen Screen - Final 04/16/20 10:40 Nasopharnyx Influenza Type B Antigen Screen - Final 04/16/20 10:40 Throat Group A Streptococcus Rapid Screen - Final <Jose R Zhang - Last Filed: 04/16/20 13:42> - Studies Laboratory Data (last 24 hrs) 04/16/20 11:05: PT 16.4 H, INR 1.40, APTT 30.4 04/16/20 11:05: WBC 12.3 H D, Hgb 14.6, Hct 43.8, Plt Count 563 H D 04/16/20 11:05: Sodium 135 L, Potassium 3.4 L, BUN 19 H, Creatinine 0.80, Glucose 103, Total Bilirubin 0.5, AST 41 H, ALT 48, Alkaline Phosphatase 122 H, Lipase 343 Microbiology Data (last 24 hrs): 04/16/20 10:40 Nasopharnyx Coronavirus COVID-19 PCR - Final 04/16/20 10:40 Nasopharnyx Influenza Type A Antigen Screen - Final 04/16/20 10:40 Nasopharnyx Influenza Type B Antigen Screen - Final 04/16/20 10:40 Throat Group A Streptococcus Rapid Screen - Final <Dandy Smith - Last Filed: 04/16/20 18:42> Assessment and Plan - Plan Assessment Dyspnea and Hypoxia secondary to COVID-19 pneumonia Plan Dyspnea and Hypoxia secondary to COVID-19 pneumonia: Pulmonology has been consulted on this case. Will continue with thiamine, zinc, Decadron, oxygen therapy. Patient appeared dry in the ED with tachypneic. Patient given a small fluid bolus fall in emergency department. Can continue with Lasix as per pulmonology recommendations if patient is better hydrated tomorrow. Will provide patient with Lovenox 40 milligrams/kilogram subcutaneous once daily for DVT prophylaxis. This can be increased to Lovenox 1 milligram/kilogram twice daily if patient continues to deteriorate clinically. Patient on telemetry du ring this hospitalization. Patient will be placed on electrolyte protocols. Anticipate clinical improvement in the next 48-72 hr. Discharge Plan: Home Plan to discharge in: Greater than 2 days - Advance Directives Does patient have a Living Will: No Does patient have a Durable POA for Healthcare: No - Code Status/Comfort Care Code Status Assessed: Yes (Patient is full code) Critical Care: No Time Spent Managing Pts Care (In Minutes): 55 <Jose R Zhang - Last Filed: 04/16/20 13:42> - Plan Case discussed in detail with nurse practitioner. Agree with evaluation, assessment and plan of care. Will consult pulmonology for further recommendations. Will continue IV Decadron. Will maintain oxygen above 93%. Continue DVT prophylaxis. Will monitor closely. Anticipate improvement over the next 3 days. <Dandy Smith - Last Filed: 04/16/20 18:42>
[2020-04-16 18:28] LABS: Urine Blood NEGATIVE (NEG); Urine Glucose NEGATIVE (NEG); Urine Protein 1+ (NEG); Urine pH 5.5 (5.0-7.0)
[2020-04-16 18:51] LABS: Urine Bacteria <20 /HPF (NONE SEEN); Urine Culture Reflex Order NOT NEEDED; Urine Mucus 1+ /HPF (NONE SEEN); Urine RBC <5 /HPF (NONE SEEN)
[2020-04-16] MEDS ORDERED: ENOXAPARIN 40 MG/0.4 ML SQ ONE (21:47)
[2020-04-16] MEDS ORDERED: ONDANSETRON 4 MG/2 ML VIAL IV PRN (21:47)
[2020-04-16] MEDS ORDERED: ACETAMINOPHEN 500 MG TAB PO PRN (21:47)
[2020-04-16] MEDS ORDERED: NA CHLORIDE 0.9% 500 ML IV ONE (21:47)
[2020-04-16] MEDS ORDERED: POTASSIUM CL SA 10 MEQ TAB PO ONE (21:54)
[2020-04-16] MEDS ORDERED: TRAZODONE 50 MG TABLET PO ONE (22:01)
[2020-04-16 23:16] VITALS: BMI 32.7
[2020-04-17 07:17] LABS: Absolute Lymphocytes (CBC) 1.1 K/uL (0.7-4.9); BUN Blood Urea Nitrogen 23 mg/dL (7-18); Basophils % 0.3 % (0-1.3); Bicarbonate 28 mmol/L (21-32); Glucose Level 118 mg/dL (74-106); Hematocrit 40.2 % (39.6-49.0); Lymphocytes % 10.7 % (15.3-44.8); MPV 7.7 fL (7.6-11.3); Magnesium 2.8 mg/dL (1.8-2.4); Potassium 4.4 mmol/L (3.5-5.1); RBC Red Blood Cell Count 4.48 M/uL (4.33-5.43); Sodium Level 141 mmol/L (136-145)
[2020-04-17] MEDS: THIAMINE HCL 100 MG TABLET PO SCH (08:02)
[2020-04-17] MEDS: ZINC SULFATE 220 MG CAP PO SCH (08:03)
[2020-04-17] MEDS: CEFTRIAXONE/SWI 1gm 1 GM/10 ML SYR IV SCH (08:03)
[2020-04-17] MEDS: dexAMETHasone 10 MG/ML VIAL IV SCH ×2 (08:47→16:05)
[2020-04-17] MEDS: SPIRONOLACTONE 25 MG TABLET PO SCH (08:48)
[2020-04-17] MEDS: FUROSEMIDE 20 MG/ 2ML VIAL IV SCH (08:53)
[2020-04-17] MEDS ORDERED: FUROSEMIDE 20 MG/ 2ML VIAL IV SCH (09:00)
[2020-04-17] MEDS ORDERED: dexAMETHasone 4 MG TAB PO SCH (09:00)
[2020-04-17] MEDS ORDERED: AZITHROMYCIN IV 500 MG in NA CHLORIDE 0.9% 250 ML IVPB SCH (09:00)
--- NOTE | 2020-04-17 10:05 | P.CNS ---
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 this still coughing short of breath Allergies povidone-iodine [From Betadine] Allergy (Verified 12/08/11 20:14) Hives/Rash soap [From Betadine] Allergy (Verified 12/08/11 20:14) Hives/Rash Home Medications: NK [No Home Meds] 04/16/20 - Past Medical/Surgical History Diabetic: No -: none -: Foot surgery x 2 , bunions -: internal hemorrhoids surgery Psychosocial/ Personal History: Patient lives at home with - Family History Mother History Unknown: Yes Medical History: Diabetes - Social History Alcohol use: Yes CD- Drugs: No Caffeine use: Yes Place of Residence: Home Review of Systems General: Weakness Respiratory: Cough, Shortness of Breath Physical Examination Temp Pulse Resp BP Pulse Ox 97.8 F 83 22 H 126/80 93 04/16/20 22:00 04/17/20 08:53 04/16/20 22:00 04/17/20 08:53 04/16/20 22:00 Laboratory Data (last 24 hrs) 04/16/20 11:05: PT 16.4 H, INR 1.40, APTT 30.4 04/16/20 11:05: WBC 12.3 H D, Hgb 14.6, Hct 43.8, Plt Count 563 H D 04/16/20 11:05: Sodium 135 L, Potassium 3.4 L, BUN 19 H, Creatinine 0.80, Glucose 103, Total Bilirubin 0.5, AST 41 H, ALT 48, Alkaline Phosphatase 122 H, Lipase 343 - Problems (1) Pneumonia due to human coronavirus Current Visit: Yes Status: Acute Plan: Patient is 60 years of age admitted with pneumonia secondary to townsend wire D- dimer is markedly elevated otherwise labs are unremarkable IV increase the dose of Decadron low-dose diuretics anti RANJITH negative fluid balance will try him on high-flow oxygen CT scan reviewed anti coagulated
[2020-04-17] MEDS: APIXABAN 2.5 MG TABLET PO SCH ×2 (10:46→21:08)
--- NOTE | 2020-04-17 11:25 | P.PN ---
Subjective Date of Service: 04/17/20 Chief Complaint: COVID-pneumonia, hypoxia Subjective: No new changes, No C/O voiced Review of Systems General: Unremarkable Eyes: Unremarkable ENT: Unremarkable Respiratory: Cough, Shortness of Breath Cardiovascular: Unremarkable Gastrointestinal: Unremarkable Genitourinary: Unremarkable Musculoskeletal: Unremarkable Integumentary: Unremarkable Neurological: Unremarkable Lymphatics: Unremarkable Physical Examination - Vital Signs Temperature: 98.1 F Blood Pressure: 126/80 Pulse: 83 Respirations: 20 Pulse Ox (%): 92 - Physical Exam General: Alert, In no apparent distress, Oriented x3 HEENT: Atraumatic, Normocephalic Neck: Supple Respiratory: Diminished, Expiratory wheezes, Other (Moderate atypia, moderate respiratory distress) Cardiovascular: No edema, Normal pulses, Regular rate/rhythm, Normal S1 S2 Capillary refill: <2 Seconds Gastrointestinal: Normal bowel sounds, Soft and benign Musculoskeletal: No contractures, No erythema, No tenderness Integumentary: No erythema, No warmth Neurological: Normal gait, Normal speech, Normal strength at 5/5 x4 extr, Normal tone - Studies Laboratory Data (last 24 hrs) 04/16/20 11:05: PT 16.4 H, INR 1.40, APTT 30.4 04/16/20 11:05: Sodium 135 L, Potassium 3.4 L, BUN 19 H, Creatinine 0.80, Glucose 103, Total Bilirubin 0.5, AST 41 H, ALT 48, Alkaline Phosphatase 122 H, Lipase 343 Microbiology Data (last 24 hrs): 04/16/20 10:40 Nasopharnyx Coronavirus COVID-19 PCR - Final 04/16/20 10:40 Nasopharnyx Influenza Type A Antigen Screen - Final 04/16/20 10:40 Nasopharnyx Influenza Type B Antigen Screen - Final 04/16/20 10:40 Throat Group A Streptococcus Rapid Screen - Final Assessment & Plan Discharge Plan: Home Plan to discharge in: Greater than 2 days Physician Review Additional Text: Assessment Acute respiratory failure with hypoxia secondary to Covid-19 pneumonia Plan Acute respiratory failure with hypoxia secondary to Covid-19 pneumonia: Pulmonology has been consulted this case. Patient was intermittently on BiPAP overnight, this morning he was on nasal cannula at 5 L and satting approximately 90%. Patient was tachypneic and desaturated with any movement or speaking. Patient was placed on high-flow nasal cannula at that time. Patient is tolerating high-flow nasal cannula well, will continue with Decadron, diuretics, Lovenox, thiamine, zinc. Discussed the use of convalescent plasma with both patient and , they are both amenable. Will continue with the process of obtaining convalescent plasma for this patient. Anticipate clinical improvement in the next 48-72 hr. Critical Care: No Time Spent Managing Pts Care (In Minutes): 55
[2020-04-17] MEDS ORDERED: NA CHLORIDE 0.9% 250 ML ONE (21:05)
[2020-04-18] MEDS: dexAMETHasone 10 MG/ML VIAL IV SCH ×3 (01:00→16:23)
[2020-04-18 06:58] LABS: Absolute Lymphocytes (CBC) 1.1 K/uL (0.7-4.9); Basophils % 0.2 % (0-1.3); Hematocrit 40.4 % (39.6-49.0); MPV 7.3 fL (7.6-11.3); RBC Red Blood Cell Count 4.54 M/uL (4.33-5.43)
[2020-04-18 07:13] LABS: BUN Blood Urea Nitrogen 28 mg/dL (7-18); Bicarbonate 26 mmol/L (21-32); Glucose Level 126 mg/dL (74-106); Magnesium 2.7 mg/dL (1.8-2.4); Potassium 4.4 mmol/L (3.5-5.1); Sodium Level 141 mmol/L (136-145)
[2020-04-18] MEDS: THIAMINE HCL 100 MG TABLET PO SCH (07:57)
[2020-04-18] MEDS: FUROSEMIDE 20 MG/ 2ML VIAL IV SCH (07:57)
[2020-04-18] MEDS: CEFTRIAXONE/SWI 1gm 1 GM/10 ML SYR IV SCH (07:58)
[2020-04-18] MEDS: ZINC SULFATE 220 MG CAP PO SCH (07:58)
[2020-04-18] MEDS: SPIRONOLACTONE 25 MG TABLET PO SCH (07:58)
[2020-04-18] MEDS: APIXABAN 2.5 MG TABLET PO SCH ×2 (07:59→20:16)
[2020-04-18] MEDS ORDERED: FUROSEMIDE 20 MG TABLET PO SCH (09:00)
--- NOTE | 2020-04-18 10:24 | P.PN ---
Subjective Date of Service: 04/18/20 Chief Complaint: COVID-pneumonia, hypoxia Subjective: Improving (Patient is doing better still has some cough) Review of Systems General: Weakness Respiratory: Cough, Shortness of Breath Physical Examination - Vital Signs Temperature: 97.9 F Blood Pressure: 126/82 Pulse: 84 Respirations: 16 Pulse Ox (%): 95 - Studies Microbiology Data (last 24 hrs): 04/16/20 10:40 Throat Culture & Sensitivity - Final NORMAL UPPER RESPIRATORY JACQUES GROWN. Assessment & Plan - Problems (Diagnosis) (1) Pneumonia due to human coronavirus Current Visit: Yes Status: Acute Plan: Patient has clinically improved is doing better will wean him off high-flow oxygen change him over to nasal cannula patient is requiring less than 6 L of nasal can oxygen probably discharge on prednisone 10 mg twice a day for 10 days eyes is coughing add an Advair inhaler continue with low-dose spironolactone for about a week
--- NOTE | 2020-04-18 11:05 | P.PN ---
Subjective Date of Service: 04/18/20 Chief Complaint: COVID-pneumonia, hypoxia Subjective: No new changes, No C/O voiced, Improving Review of Systems 10-point ROS is otherwise unremarkable Respiratory: Cough, Shortness of Breath Physical Examination - Vital Signs Temperature: 97.9 F Blood Pressure: 126/82 Pulse: 84 Respirations: 16 Pulse Ox (%): 95 - Physical Exam General: Alert, In no apparent distress HEENT: Atraumatic, PERRLA, EOMI Neck: Supple, JVD not distended Respiratory: Other (Tachypneic, diminished bilaterally, mild respiratory distress) Cardiovascular: Regular rate/rhythm, Normal S1 S2 Gastrointestinal: Normal bowel sounds, No tenderness Musculoskeletal: No tenderness Integumentary: No rashes Neurological: Normal speech, Normal tone, Normal affect Lymphatics: No axilla or inguinal lymphadenopathy - Studies Microbiology Data (last 24 hrs): 04/16/20 10:40 Throat Culture & Sensitivity - Final NORMAL UPPER RESPIRATORY JACQUES GROWN. Assessment & Plan Discharge Plan: Home Plan to discharge in: 48 Hours - Code Status/Comfort Care Code Status Assessed: Yes (Patient is full code) Physician Review Additional Text: Assessment Acute respiratory failure with hypoxia secondary to Covid-19 pneumonia Plan Acute respiratory failure with hypoxia secondary to Covid-19 pneumonia: Patient received convalescent plasma yesterday, patient is on high-flow oxygen therapy at this time. Patient is improving and requiring less oxygen. Will continue with steroids. Pulmonology leaves patient is progressing well, will wean off oxygen as tolerated. Anticipate clinical improvement discharge next 48-72 hr. Critical Care: No Time Spent Managing Pts Care (In Minutes): 55
[2020-04-18 11:07] LABS: Blood Morphology Comment NOT SEEN (NOT SEEN); Platelet Estimate INCR; Urine White Blood Cell Casts OK
[2020-04-19] MEDS: dexAMETHasone 10 MG/ML VIAL IV SCH ×2 (00:09→09:00)
[2020-04-19 04:33] LABS: Absolute Lymphocytes (CBC) 1.2 K/uL (0.7-4.9); Basophils % 0.2 % (0-1.3); Hematocrit 42.2 % (39.6-49.0); Lymphocytes % 10.2 % (15.3-44.8); MPV 7.5 fL (7.6-11.3); RBC Red Blood Cell Count 4.67 M/uL (4.33-5.43)
[2020-04-19 04:37] LABS: BUN Blood Urea Nitrogen 28 mg/dL (7-18); Bicarbonate 25 mmol/L (21-32); Glucose Level 122 mg/dL (74-106); Magnesium 2.7 mg/dL (1.8-2.4); Potassium 5.1 mmol/L (3.5-5.1); Sodium Level 140 mmol/L (136-145)
[2020-04-19] MEDS ORDERED: dexAMETHasone 4 MG/ML VIAL IV SCH (09:00)
[2020-04-19] MEDS: ZINC SULFATE 220 MG CAP PO SCH (09:16)
[2020-04-19] MEDS: THIAMINE HCL 100 MG TABLET PO SCH (09:16)
[2020-04-19] MEDS: APIXABAN 2.5 MG TABLET PO SCH ×2 (09:17→20:57)
[2020-04-19] MEDS: FUROSEMIDE 20 MG/ 2ML VIAL IV SCH (09:17)
[2020-04-19] MEDS: SPIRONOLACTONE 25 MG TABLET PO SCH (09:17)
--- NOTE | 2020-04-19 11:00 | P.PN ---
Subjective Date of Service: 04/19/20 Chief Complaint: COVID-pneumonia, hypoxia Subjective: Improving (Patient is improving sick change to nasal cannula oxygen Re to go home) Review of Systems General: Weakness Respiratory: Cough, Shortness of Breath Physical Examination - Vital Signs Temperature: 98.6 F Blood Pressure: 131/91 Pulse: 83 Respirations: 18 Pulse Ox (%): 94 - Physical Exam General: Other (To for) - Studies Microbiology Data (last 24 hrs): 04/16/20 10:40 Throat Culture & Sensitivity - Final NORMAL UPPER RESPIRATORY JACQUES GROWN. Assessment & Plan - Problems (Diagnosis) (1) Pneumonia due to human coronavirus Current Visit: Yes Status: Acute Plan: Patient is doing better he will qualify for home O2 recommend discharge home on low-dose spironolactone 25 mg daily prednisone 10 mg twice daily for 1 week antibiotics not needed labs reviewed follow up with me in 2 weeks
[2020-04-19] MEDS: dexAMETHasone 4 MG/ML VIAL IV SCH (17:44)
--- NOTE | 2020-04-19 18:29 | P.PN ---
Subjective Date of Service: 04/19/20 Chief Complaint: COVID-pneumonia, hypoxia Subjective: Improving Physical Examination - Vital Signs Temperature: 98.5 F Blood Pressure: 135/77 Pulse: 84 Respirations: 20 Pulse Ox (%): 95 - Physical Exam General: Alert HEENT: Atraumatic Neck: Supple Respiratory: Clear to auscultation bilaterally Cardiovascular: Normal pulses Neurological: Normal speech, Normal strength at 5/5 x4 extr, Normal tone, Normal affect - Studies Medications List Reviewed: Yes Assessment & Plan Discharge Plan: Home Plan to discharge in: 24 Hours Physician Review Additional Text: Assessment Acute respiratory failure with hypoxia secondary to Covid-19 pneumonia Plan Acute respiratory failure with hypoxia secondary to Covid-19 pneumonia: Patient Sir requiring high-flow oxygen. Continue to wean off. Anticipate improvement over the next 1-2 days. Patient received plasma yesterday. Will monitor closely. Will discuss with pulmonology. May require home oxygen at discharge. Time Spent Managing Pts Care (In Minutes): 55
[2020-04-20] MEDS: dexAMETHasone 4 MG/ML VIAL IV SCH ×3 (00:20→16:00)
[2020-04-20] MEDS: APIXABAN 2.5 MG TABLET PO SCH (07:54)
[2020-04-20] MEDS: THIAMINE HCL 100 MG TABLET PO SCH (07:55)
[2020-04-20] MEDS: ZINC SULFATE 220 MG CAP PO SCH (07:55)
[2020-04-20] MEDS: SPIRONOLACTONE 25 MG TABLET PO SCH (07:56)
[2020-04-20] MEDS: FUROSEMIDE 20 MG/ 2ML VIAL IV SCH (07:56)
[2020-04-20] MEDS ORDERED: ACETYLCYST 20% 800 MG/4 ML VIAL PO SCH (09:00)
--- NOTE | 2020-04-20 13:02 | P.DS ---
Admission Date: 04/16/20 Discharge Date: 04/20/20 Primary Care Provider: unknown Disposition: ROUTINE DISCHARGE Discharge Condition: GOOD Reason for Admission: COVID-pneumonia, hypoxia Consultations: Pulmonary-Dr. Smith Procedures: CT scan: FINDINGS: No evidence of pulmonary thromboembolism. No acute aortic finding demonstrated. Extensive bilateral airspace/alveolar lung opacities are present compatible with pneumonia or ARDS. No significant pericardial or pleural fluid. No concerning bony finding. IMPRESSION: No evidence of pulmonary thromboembolism. Extensive bilateral alveolar lung opacities are present likely representing bilateral pneumonia or ARDS. Medical problem list: Acute respiratory failure with hypoxia secondary to Covid-19 bilateral pneumonia Brief History of Present Illness: 60-year-old male presented to the emergency room with increasing shor tness of breath. Patient recently evaluated for COVID and tested positive. Prior to admission patient was having more short of breath. Patient found to have bilateral viral pneumonia with hypoxia. Patient required hospitalization. Hospital Course: Patient presented to the ER with increasing shortness of breath. He was tested positive prior to admission. He was admitted for acute respiratory failure with hypoxia secondary to Covid-[address] scan revealed no pulmonary embolism. Bilateral pneumonia identified. Patient was seen by pulmonology. Patient required high-flow oxygen. Patient did receive convalescent plasma with improvement. Patient has done well and able to perform ADLs. Patient feels much better. Patient still on oxygen per nasal cannula. At discharge patient will continue with home oxygen. Currently on 4 L per nasal cannula. Home oxygen will be arranged prior to discharge. At discharge patient will also continue with prednisone 10 mg 1 pill twice daily for 7 days. Pulmonology also suggest Aldactone 25 mg daily for 7 days. Patient will also continue with thiamine 100 mg daily and zinc sulfate 1 daily. Patient will continue with aspirin 81 mg daily. Recommend follow up with pulmonology in 1 week to monitor progress. Patient will continue quarantine for 14 days. Health department will follow patient closely. Continue CDC guidelines. Continue social distancing, hand washing and facemask use. Vital Signs/Physical Exam: Temp Pulse Resp BP Pulse Ox 98.0 F 94 H 18 132/86 94 04/20/20 11:50 04/20/20 11:50 04/20/20 11:50 04/20/20 11:50 04/20/20 11:50 General: Alert, In no apparent distress, Oriented x3, Cooperative HEENT: Atraumatic Neck: Supple Respiratory: Clear to auscultation bilaterally Cardiovascular: Normal pulses, Regular rate/rhythm Gastrointestinal: Normal bowel sounds, No masses, No rebound, No guarding Neurological: Normal speech, Normal strength at 5/5 x4 extr, Normal tone, Normal affect Laboratory Data at Discharge: WBC 11.8 K/uL (4.3-10.9) H 04/19/20 03:36 Hgb 14.1 g/dL (13.6-17.9) 04/19/20 03:36 Hct 42.2 % (39.6-49.0) 04/19/20 03:36 Plt Count 680 K/uL (152-406) H 04/19/20 03:36 PT 16.4 SECONDS (9.5-12.5) H 04/16/20 11:05 INR 1.40 04/16/20 11:05 APTT 30.4 SECONDS (24.3-36.9) 04/16/20 11:05 Sodium 140 mmol/L (136-145) 04/19/20 03:36 Potassium 5.1 mmol/L (3.5-5.1) 04/19/20 03:36 BUN 28 mg/dL (7-18) H 04/19/20 03:36 Creatinine 0.79 mg/dL (0.55-1.3) 04/19/20 03:36 Glucose 122 mg/dL (74-106) H 04/19/20 03:36 Magnesium 2.7 mg/dL (1.8-2.4) H 04/19/20 03:36 Total Bilirubin 0.5 mg/dL (0.2-1.0) 04/16/20 11:05 AST 41 U/L (15-37) H 04/16/20 11:05 ALT 48 U/L (12-78) 04/16/20 11:05 Alkaline Phosphatase 122 U/L (45-117) H 04/16/20 11:05 Lipase 343 U/L (73-393) 04/16/20 11:05 Home Medications: Aspirin [Aspirin EC 81 MG] 81 mg PO DAILY #90 tablet.dr 04/20/20 Spironolactone [Aldactone*] 25 mg PO DAILY #7 tab 04/20/20 Thiamine HCl [Vitamin B-1*] 100 mg PO DAILY #30 tablet 04/20/20 Zinc Sulfate [Zinc Sulfate*] 220 mg PO DAILY #30 cap 04/20/20 predniSONE [Deltasone*] 10 mg PO BID #14 tab 04/20/20 New Medications: Spironolactone [Aldactone*] 25 mg PO DAILY #7 tab Aspirin [Aspirin EC 81 MG] 81 mg PO DAILY #90 tablet. predniSONE [Deltasone*] 10 mg PO BID #14 tab Thiamine HCl [Vitamin B-1*] 100 mg PO DAILY #30 tablet Zinc Sulfate [Zinc Sulfate*] 220 mg PO DAILY #30 cap Patient Discharge Instructions: 1. Recommend follow up with PCP in 1 week to follow up this hospitalization. 2. Patient presented to the ER with increasing shortness of breath. He was tested positive prior to admission. He was admitted for acute respiratory failure with hypoxia secondary to Covid-[address] scan revealed no pulmonary embolism. Bilateral pneumonia identified. Patient was seen by pulmonology. Patient required high-flow oxygen. Patient did receive convalescent plasma with improvement. Patient has done well and able to perform ADLs. Patient feels much better. Patient still on oxygen per nasal cannula. At discharge patient will continue with home oxygen. Currently on 4 L per nasal cannula. Home oxygen will be arranged prior to discharge. At discharge patient will also continue with prednisone 10 mg 1 pill twice daily for 7 days. Pulmonology also suggest Aldactone 25 mg daily for 7 days. Patient will also continue with thiamine 100 mg daily and zinc sulfate 1 daily. Patient will continue with aspirin 81 mg daily. Recommend follow up with pulmonology in 1 week to monitor progress. Patient will continue quarantine for 14 days. Health department will follow patient closely. Continue CDC guidelines. Continue social distancing, hand washing and facemask use. Diet: AHA Activity: Ad agnes Time spent managing pt's care (in minutes): 55
[2020-04-20 15:06] VITALS: O2SAT 94
[2020-04-20 15:44] VITALS: BP 140/101; TEMP 97.8
== END 2020-04-20 17:00 | disposition home or self-care (01) | DRG 177 ==
LOC: ER 09:19 → ERHOLD 13:12 → 4TH 20:25
PROVIDERS: ADMIT Family Medicine; ATTEND Family Medicine
PROC: 5A09357 Assistance with Respiratory Ventilation, Less than 24 Consecutive Hours, Continuous Positive Airway Pressure (ICD-10-PCS; principal; 2020-04-16)
DX: U07.1 COVID-19 (principal); J12.89 Other viral pneumonia; J96.01 Acute respiratory failure with hypoxia
CPT/HCPCS: 36415; 36430; 71045; 71275; 80048; 80076; 81003; 81015; 82728; 83605; 83690; 83735; 84145; 84484; 85025; 85379; 85610; 85730; 86140; 86850; 86900; 86901; 86927; 87040; 87070; 87081; 87804; 93005; 94660; 94760; 96365; 96372; 96375; 99285; J0456; J0696; J1100; J1650; J1940; J7040; J7050; J8540; Q9967; U0002

== ENCOUNTER 2024-03-16 08:59 | Inpatient (IN) | payer OTHER ==
--- OUTSIDE RECORDS SUMMARY | 2024-03-16 09:02 | XMS REPORT | Continuity of Care Document ---
Author Name Unknown Address [address] [place] [address] [employer] Address [address] [place] [address] Care Team Providers Care Employment Director Name Role Phone Unavailable Unavailable Unavailable Encounters Start Date/Time End Date/Time Encounter Type Admission Type Attending Clinicians Care Facility Care Department Encounter ID Source 2022-03-23 08:49:03 Outpatient [facility] [id number] [facility]
[2024-03-16] MEDS ORDERED: NA CHLORIDE 0.9% 3,000 ML ONE (09:28)
[2024-03-16 09:43] LABS: Absolute Lymphocytes (CBC) 0.5 K/uL (0.7-4.9); Absolute Monocytes 0.5 K/uL (0.1-1.3); Absolute Neutrophil 11.3 K/uL (1.8-8.0); Basophils % 0.2 % (0-1.3); Eosinophils % 0.2 % (0-4.4); Hematocrit 51.1 % (39.6-49.0); Hemoglobin 17.2 g/dL (13.6-17.9); Lymphocytes % 3.9 % (15.3-44.8); MCH 29.8 pg (27.0-35.0); MCHC 33.6 g/dL (32.0-36.0); MCV 88.6 fL (80-100); MPV 8.7 fL (7.6-11.3); Monocytes % 3.9 % (3.3-12.3); Neutrophils % 91.8 % (41.7-73.7); Platelets 168 thou/uL (152-406); RBC Red Blood Cell Count 5.76 M/uL (4.33-5.43); Red Cell Distribution Width 14.1 % (12.1-15.2)
[2024-03-16 09:49] LABS: PT Prothrombin Time 11.8 SECONDS (9.5-12.5); Protime INR 1.07
[2024-03-16 09:57] LABS: Specific Gravity > 1.030 (1.005-1.030); Sqamous Epithelial None Seen /HPF (None Seen); Urine Bacteria None Seen /HPF (<20); Urine Bilirubin NEGATIVE (Negative); Urine Blood 1+ (Negative); Urine Clarity Turbid (Clear); Urine Color Yellow (Yellow); Urine Culture Reflex Order NOT NEEDED; Urine Glucose NEGATIVE (Negative); Urine Ketones 2+ (Negative); Urine Microscopic Reflex YN ORDER UMIC; Urine Mucus Slight /HPF (None Seen); Urine Nitrite NEGATIVE (Negative); Urine Protein 2+ (Negative); Urine RBC <5 /HPF (None Seen); Urine Urobilinogen 2+ (Normal); Urine WBC <5 /HPF (<5)
[2024-03-16] MEDS ORDERED: ENOXAPARIN 100 MG/ML SYR SQ ONE (10:01)
[2024-03-16 10:02] LABS: Albumin 2.9 g/dL (3.4-5.0); Albumin/Globulin Ratio 0.7 (1.1-1.8); Anion Gap 14.4 mEq/L (5.0-15.0); Bilirubin Total 1.4 mg/dL (0.2-1.0); Globulin 3.9 g/dL (2.3-3.5); Potassium 3.4 mEq/L (3.5-5.1); Protein, Total 6.8 g/dL (6.4-8.2)
[2024-03-16 10:06] LABS: Troponin High Sensitivity 228.1 pg/mL (<58.9)
[2024-03-16 10:14] LABS: Blood Morphology Comment NOT SEEN (NOT SEEN); Platelet Estimate ADEQ; White Blood Cell Scan OK (OK)
--- NOTE | 2024-03-16 10:35 | RAD REPORT ---
EXAM DESCRIPTION: RAD - Chest Single View - 03/16/2024 10:26 am CLINICAL HISTORY: Fever;SOB COMPARISON: Chest Single View dated 04/16/2020; Chest Single View dated 04/09/2020 FINDINGS: Lines: None. Lungs: No evidence of edema or pneumonia. Pleural: No significant pleural effusions or pneumothorax. Cardiac: The heart size is within normal limits. Mediastinum: Within normal limits. Bones: No acute fractures. Other: None IMPRESSION: No acute cardiopulmonary disease.
--- NOTE | 2024-03-16 11:09 | RAD REPORT ---
EXAM DESCRIPTION: CT - Chest For Pe Angio - 03/16/2024 11:01 am CLINICAL HISTORY: DYSPNEA COMPARISON: Chest For Pe Angio dated 04/16/2020 TECHNIQUE: Dynamically enhanced axial 3 mm thick images of the chest were obtained during administra tion of <100> mL Isovue 370 IV contrast. Coronal and oblique reconstruction images were generated and reviewed. Exam utilizes a protocol for optimal evaluation of pulmonary arterial tree. Maximum intensity projections 3D imaging was utilized All CT scans are performed using dose optimization technique as appropriate and may include automated exposure control or mA/KV adjustment according to patient size. FINDINGS: Chest Wall: No suspicious thyroid nodules or pathologic lymphadenopathy. Lungs: No acute abnormality. Subtle mild bilateral ground-glass opacities probably sequela of remote viral pneumonia. Pleura: No significant effusions or pneumothorax. Mediastinum/kirt: No pathologic lymphadenopathy. Pulmonary arteries/Aorta: No filling defect identified. No aortic aneurysm. Heart: Trace pericardial effusion. Mild cardiomegaly. Coronary calcifications. Upper abdomen: No acute abnormality.Several low-density liver lesions are noted which are unchanged s 2019 and almost certainly benign. Bones: No acute abnormality. IMPRESSION: Negative for pulmonary embolism. No other acute process identified. Suspected chronic alexandra ng changes.
--- NOTE | 2024-03-16 11:18 | EDPHYS ---
Physician Documentation [facility] Name: Richard Dawson Age: 63 yrs Sex: Male : 1960 Arrival Date: 03/16/2024 Time: 08:59 Bed 6 Private MD: ED Physician Jeff Robison HPI: 03/16 09:02 This 63 yrs old Male presents to ER via Unassigned with complaints of Shortness Of jh7 Breath, General Weakness. 09:02 The patient has shortness of breath at rest. Onset: The symptoms/episode began/occurred jh7 3 day(s) ago, and became worse today. Associated signs and symptoms: Pertinent positives: non-productive cough, dizziness, fever, body aches. 63-year-old male with no past medical history presents to the ER for fever since Sunday with shortness of breath, weakness, decreased urination, and dark urine starting on Sunday. The patient reports that since he was seen in the ED on , he has had a persistent fever. He is currently on Augmentin and reports that his symptoms have not improved. He denies chest pain, syncope, or any other symptoms at this time.. Historical: - Allergies: 09:17 Iodine; ss - Home Meds: :17 None [Active]; ss - PMHx: 09:17 None; ss - Immunization history:: Adult Immunizations up to date, Client reports receiving the 2nd dose of the Covid vaccine. - Infectious Disease History:: Denies. - Social history:: Smoking status: Patient denies any tobacco usage or history of. ROS: 09:02 Constitutional: Per HPI jh7 Exam: 09:02 Constitutional: The patient appears alert, awake, obviously ill, jh7 09:02 Head/Face: Normocephalic, atraumatic. Neck: Trachea midline, no thyromegaly or masses jh7 palpated, and no cervical lymphadenopathy. Supple, full range of motion without nuchal rigidity, or vertebral point tenderness. No Meningismus. 09:02 Abdomen/GI: Soft, non-tender, with normal bowel sounds. No distension or tympany. No guarding or rebound. No evidence of tenderness throughout. Back: No spinal tenderness. No costovertebral tenderness. Full range of motion. Skin: Warm, dry with normal turgor. Normal color with no rashes, no lesions, and no evidence of cellulitis. MS/ Extremity: Pulses equal, no cyanosis. Neurovascular intact. Full, normal range of motion. Neuro: Awake and alert, GCS 15, oriented to person, place, time, and situation. Motor strength 5/5 in all extremities. Sensory grossly intact. Normal gait. 09:02 Cardiovascular: Rate: tachycardic, actual rate is 145 bpm, Rhythm: irregularly irregular, Pulses: Pulses are 3+ in right radial artery and left radial artery. 09:02 Respiratory: mild respiratory distress is noted, Respirations: tachypnea, 24 Breath sounds: decreased breath sounds, that are mild, are located in both bases, Vital Signs: 09:13 BP 117 / 92; Pulse 144; Resp 24; Temp 99.3; Pulse Ox 95% on R/A; Weight 99.79 kg; ss Height 5 ft. 10 in. ; Pain 0/10; 09:16 Pulse 140; Resp 32; Pulse Ox 97% ; db 09:30 BP 123 / 97; Pulse 141; Resp 30; Pulse Ox 94% on R/A; db 10:00 BP 124 / 93; Pulse 125; Resp 25; Pulse Ox 94% on R/A; db 11:22 BP 112 / 94; Pulse 127; Resp 28; Pulse Ox 96% on R/A; db 11:55 BP 118 / 80; Pulse 127; Resp 28; Pulse Ox 95% on R/A; db 12:30 BP 115 / 84; Pulse 123; Resp 28; Pulse Ox 95% on R/A; db 09:13 Body Mass Index 31.57 (99.79 kg, 177.8 cm) ss 09:13 Pain Scale: Adult ss MDM: 09:02 Patient medically screened. [facility] 11:21 Differential diagnosis: CHF exacerbation, Myocardial Infarction pneumonia, Pneumothorax [facility] pulmonary edema, Pulmonary Embolism Sepsis ALINA, rhabdomyolysis. Antibiotic administration: Not indicated, the patient has a suspected viral illness, No source found. Relayed this information to the hospitalist.. Data interpreted: Pulse oximetry: is 94 %. Interpretation: acceptable. Data reviewed: vital signs, nurses notes, lab test result(s), EKG, radiologic studies, CT scan, plain films. Consideration of Admission/Observation Patient was admitted/placed on observation. Management of patient was discussed with the following: Hospitalist: Jose R Zhang CASUALTY CLAIM ADJUSTER with Dr. Johnson. Remelt Operator: Dr. Guzman, cardiology. Informed him that the patient's heart rate was 122. He advised not giving anything for rate control at this time and to continue to monitor patient.. I considered the following discharge prescriptions or medication management in the emergency department Medications were administered in the Emergency Department. See MAR. Independent interpretation of the following test(s) in the Emergency Department EKG: See my EKG interpretation above. Historians other than the Patient: Spouse/Significant Other: . Scoring Tools PERC Rule for PE Age >/= 50 Yes HR >/= 100 Yes O2 Sat Room Air < 95% Yes. Counseling: I had a detailed discussion with the patient and/or guardian regarding the historical points, exam findings, and any diagnostic results supporting the discharge/admit diagnosis, the need for further work-up and treatment in the hospital. Response to treatment: the patient's symptoms have mildly improved after treatment. 03/16 09:12 Order name: Blood Culture Adult (2) [facility] 03/16 09:12 Order name: CBC with Diff; Complete Time: 10:15 [facility] 03/16 09:12 Order name: CMP; Complete Time: 10:13 [facility] 03/16 09:12 Order name: Lactate w/ 2H reflex if indic.; Complete Time: 10: [facility] 03/16 09:12 Order name: Protime (+inr); Complete Time: 09:55 [facility] 03/16 09:12 Order name: Ptt, Activated; Complete Time: 09:55 [facility] 03/16 09:12 Order name: Urinalysis w/ reflexes; Complete Time: 10:06 [facility] 03/16 09:12 Order name: Troponin High Sensitivity; Complete Time: 10:13 [facility] 03/16 09:44 Order name: CK; Complete Time: 10:13 [facility] 03/16 09:47 Order name: CBC Smear Scan; Complete Time: 10:15 [facility] 03/16 09:59 Order name: Glucose, Ancillary Testing; Complete Time: 10:06 [facility] 03/16 11:15 Order name: BNP; Complete Time: 11:58 [facility] 03/16 11:59 Order name: Lactate w/ 2H reflex if indic. db 03/16 12:46 Order name: Lactate w/ 2H reflex if indic.; Complete Time: 16:16 [facility] 03/16 09:12 Order name: Chest Single View XRAY; Complete Time: 10:40 [facility] 03/16 10:20 Order name: CT Chest For PE Angio; Complete Time: 11:10 [facility] 03/16 09:12 Order name: Accucheck; Complete Time: 09:47 [facility] 03/16 09:12 Order name: Cardiac monitoring; Complete Time: 09:16 [facility] 03/16 09:12 Order name: EKG - Nurse/Tech; Complete Time: 09:16 [facility] 03/16 09:12 Order name: IV Saline Lock - Large Bore; Complete Time: 09:48 [facility] 03/16 09:12 Order name: Labs collected and sent; Complete Time: 09:41 [facility] 03/16 09:12 Order name: O2 Per Protocol; Complete Time: 09:16 [facility] 03/16 09:12 Order name: O2 Sat Monitoring; Complete Time: 09:16 [facility] 03/16 09:12 Order name: Vital Signs; Complete Time: 09:16 [facility] EC:02 Rate is 145 beats/min. Rhythm is irregular. QRS [place] is Normal. QRS interval is normal [facility] at 84 msec. QT interval is normal at 338 msec. No Q waves. T waves are Normal. No ST changes noted. Clinical impression: Atrial Fibrillation. Administered Medications: 09:14 Not Given (Duplicate Order): ns 0.9% 1000 ml IV at 1 bolus Per protocol; 1000 mL bolus [facility] 09:42 Drug: NS 0.9% IV (30 ml/kg) 30 ml/kg IV at bolus once; Sepsis Protocol Route: IV; Rate: db bolus; Site: right antecubital; 12:04 Follow up: Response: No adverse reaction; IV Status: Completed infusion; IV Intake: db 3000ml 10:08 Drug: Enoxaparin Sub-Q 1 mg/kg Sub-Q once Route: Sub-Q; Site: right lower abdomen; db 12:04 Follow up: Response: No adverse reaction db Point of Care Testing: Blood Glucose: 09:49 Blood Glucose: 141 mg/dL; db Ranges: Critical Glucose Levels:Adult <50 mg/dl or >400 mg/dl <40 mg/dl or >180 mg/dl Disposition Summary: 03/16/24 11:18 Hospitalization Ordered Notes: Hospitalization Status: Inpatient Admission [facility] Provider: Andrew Johnson [facility] Location: Telemetry/MedSurg (Inpatient) [facility] Condition: Stable [facility] Problem: new [facility] Symptoms: are unchanged [facility] Bed/Room Type: Standard [facility] Room Assignment: [id number](03/16/24 11:41) Diagnosis - New onset atrial fibrillation 7 - Other viral pneumonia [facility] - Elevated Troponin 7 - Elevated Lactate [facility] Forms: - Medication Reconciliation Form [facility] - SBAR form [facility] - Leadership Thank You Letter [facility] Signatures: Dispatcher [employer] EDMS Yina Schaffer, TRAFFIC COURT MAGISTRATE-C [address] MAGISTRATE-Csnw Lindsay Sandoval, RN RN Shannon Huffman FNP TRAFFIC COURT MAGISTRATE [facility] Fatemeh Patel, RN RN db Corrections: (The following items were deleted from the chart) 09:13 09:12 BLOOD CULTURE*+BA.LAB.BRZ ordered. EDMS EDMS 09:13 09:12 CBC+H.LAB.BRZ ordered. EDMS EDMS 09:13 09:12 COMPREHENSIVE METABOLIC PANEL+C.LAB.BRZ ordered. EDMS EDMS 09:13 09:12 LACTATE+C.LAB.BRZ ordered. EDMS EDMS 09:13 09:12 PROTIME (+INR)+COAG.LAB.BRZ ordered. EDMS EDMS 09:13 09:12 PTT, ACTIVATED+COAG.LAB.BRZ ordered. EDMS EDMS 09:13 09:12 Urinalysis+U.LAB.BRZ ordered. EDMS EDMS 09:13 09:12 Troponin High Sensitivity+C.LAB.BRZ ordered. EDMS EDMS 11:41 11:18 [facility] ss
--- NOTE | 2024-03-16 11:18 | ER ---
Nurse's Notes [facility] Name: Richard Dawson Age: 63 yrs Sex: Male : 1960 Arrival Date: 03/16/2024 Time: 08:59 Bed 6 Private MD: Diagnosis: New onset atrial fibrillation;Other viral pneumonia;Elevated Troponin;Elevated Lactate Presentation: 03/16 09:13 Chief complaint: Patient states: Seen in ER and tested negative for Covid and Flu on ss . PT reports fever is still persistent, and now has some shortness of breath and severe fatigue. Ebola Screen: Patient denies exposure to infectious person. Patient denies travel to an Ebola-affected area in the 21 days before illness onset. Initial Sepsis Screen: Does the patient meet any 2 criteria? RR > 20 per min. HR > 90 bpm. Does the patient have a suspected source of infection? No. Patient's initial sepsis screen is negative. Risk Assessment: Do you want to hurt yourself or someone else? Patient reports no desire to harm self or others. Onset of symptoms was March 12, 2024. 09:13 Method Of Arrival: Ambulatory ss 09:13 Acuity: JENELLE 2 ss 09:25 Coronavirus screen: Client denies travel out of the [place] in the last 14 days. At this db time, the client does not indicate any symptoms associated with coronavirus-19. Triage Assessment: 09:17 General: Appears uncomfortable, ill, Behavior is calm, cooperative. Pain: Denies pain. ss Neuro: Level of Consciousness is awake, alert, obeys commands, Oriented to person, place, time, situation. Respiratory: Reports shortness of breath Airway is patent Respiratory effort is even, Respiratory pattern is tachypnea. Derm: Skin is intact, Skin is clammy, Skin is pink. Historical: - Allergies: 09:17 Iodine; ss - Home Meds: 09:17 None [Active]; ss - PMHx: 09:17 None; ss - Immunization history:: Adult Immunizations up to date, Client reports receiving the 2nd dose of the Covid vaccine. - Infectious Disease History:: Denies. - Social history:: Smoking status: Patient denies any tobacco usage or history of. Screenin:42 [facility] ED Fall Risk Assessment (Adult) History of falling in the last 3 months, db including since admission No falls in past 3 months (0 pts) Confusion or Disorientation No (0 pts) Intoxicated or Sedated No (0 pts) Impaired Gait No (0 pts) Mobility Assist Device Used No (0 pt) Altered Elimination No (0 pt) Score/Fall Risk Level 0 - 2 = Low Risk Oriented to surroundings, Maintained a safe environment. Abuse screen: Denies threats or abuse. Denies injuries from another. Nutritional screening: No deficits noted. Tuberculosis screening: No symptoms or risk factors identified. Assessment: 09:15 Reassessment: CODE SEPSIS CALLED. General: Appears in no apparent distress. db uncomfortable, Behavior is cooperative. Neuro: Level of Consciousness is awake, alert, obeys commands, Oriented to person, place, time, situation. Cardiovascular: Rhythm is atrial fibrillation. Respiratory: Airway is patent Respiratory effort is even, unlabored, Respiratory pattern is regular, symmetrical. 12:09 Reassessment: Patient appears in no apparent distress at this time. Patient and/or db family updated on plan of care and expected duration. Pain level reassessed. Patient is alert, oriented x 3, equal unlabored respirations, skin warm/dry/pink. Respiratory: Breath sounds are clear bilaterally. 13:01 Reassessment: Patient appears in no apparent distress at this time. Patient and/or db family updated on plan of care and expected duration. Pain level reassessed. Patient is alert, oriented x 3, equal unlabored respirations, skin warm/dry/pink. Vital Signs: 09:13 BP 117 / 92; Pulse 144; Resp 24; Temp 99.3; Pulse Ox 95% on R/A; Weight 99.79 kg; ss Height 5 ft. 10 in. ; Pain 0/10; 09:16 Pulse 140; Resp 32; Pulse Ox 97% ; db 09:30 BP 123 / 97; Pulse 141; Resp 30; Pulse Ox 94% on R/A; db 10:00 BP 124 / 93; Pulse 125; Resp 25; Pulse Ox 94% on R/A; db 11:22 BP 112 / 94; Pulse 127; Resp 28; Pulse Ox 96% on R/A; db 11:55 BP 118 / 80; Pulse 127; Resp 28; Pulse Ox 95% on R/A; db 12:30 BP 115 / 84; Pulse 123; Resp 28; Pulse Ox 95% on R/A; db 09:13 Body Mass Index 31.57 (99.79 kg, 177.8 cm) ss 09:13 Pain Scale: Adult ss ED Course: 09:01 Patient arrived in ED. ss 09:02 [facility] 7 09:02 Jeff Robison MD is Attending Physician. jh7 09:17 Triage completed. ss 09:17 Arm band placed on right wrist. ss 09:20 First set of blood cultures drawn by me. Missed attempt(s): 20 gauge in left db antecubital area. Bleeding controlled, band aid applied, catheter tip intact. 09:25 Fatemeh Patel, RN is Primary Nurse. db 09:28 Second set of blood cultures drawn by me. sm8 09:39 Inserted saline lock: 22 gauge in right antecubital area, using aseptic technique. sm8 Blood collected. 09:39 Urine collected: clean catch specimen, clear, marcell colored. 8 09:40 Initial lab(s) drawn, by me, sent to lab. 8 09:41 Blood Culture Adult (2) Sent. sm8 09:41 Urinalysis w/ reflexes Sent. sm8 09:45 Patient has correct armband on for positive identification. Bed in low position. Call db light in reach. Side rails up X 1. Client placed on continuous cardiac and pulse oximetry monitoring. NIBP monitoring applied. patient monitor on. Pulse ox on. NIBP on. Warm blanket given. Pillow given. 10:28 Chest Single View XRAY In Process Unspecified. EDMS 11:03 CT Chest For PE Angio In Process Unspecified. EDMS 11:16 Andrew Johnson MD is Hospitalizing Provider. 7 12:09 Provided Education on: ADMISSION. db 12:09 No provider procedures requiring assistance completed. Patient admitted, IV remains in db place. 12:22 Lactate w/ 2H reflex if indic. Sent. 8 12:22 Initial lab(s) drawn, by me, sent to lab. sm8 Administered Medications: 09:14 Not Given (Duplicate Order): ns 0.9% 1000 ml IV at 1 bolus Per protocol; 1000 mL bolus [facility] 09:42 Drug: NS 0.9% IV (30 ml/kg) 30 ml/kg IV at bolus once; Sepsis Protocol Route: IV; Rate: db bolus; Site: right antecubital; 12:04 Follow up: Response: No adverse reaction; IV Status: Completed infusion; IV Intake: db 3000ml 10:08 Drug: Enoxaparin Sub-Q 1 mg/kg Sub-Q once Route: Sub-Q; Site: right lower abdomen; db 12:04 Follow up: Response: No adverse reaction db Medication: 12:09 VIS not applicable for this client. db Point of Care Testing: Blood Glucose: 09:49 Blood Glucose: 141 mg/dL; db Ranges: Intake: 12:04 IV: 3000ml; Total: 3000ml. db Outcome: 11:18 Decision to Hospitalize by Provider. [place] 12:09 Admitted to ER Hold. [facility]. db 12:09 Condition: stable 12:09 Instructed on the need for admit, 13:03 Patient left the ED. db Signatures: Dispatcher [employer] Lindsay Raya, KASEY RN Shannon Huffman FNP SLOT FLOORMAN 7 Fatemeh Patel RN RN Jennifer Worthington 8
[2024-03-16] MEDS ORDERED: ACETAMINOPHEN 325 MG TABLET PO PRN (13:16)
--- NOTE | 2024-03-16 13:42 | P.HP ---
Certification for Inpatient Patient admitted to: Observation With expected LOS: <2 Midnights Patient will require the following post-hospital care: None Practitioner: I am a practitioner with admitting privileges, knowledge of patient current condition, hospital course, and medical plan of care. Services: Services provided to patient in accordance with Admission requirements found in Title 42 Section 412.3 of the Code of Federal Regulations Patient History Date of Service: 03/16/24 Reason for admission: New onset A-fib with RVR History of Present Illness: 63-year-old otherwise healthy male presents emergency department with chief complaint of flulike symptoms, malaise/fevers. He was seen in the emergency department on 03/13 and diagnosed with acute lymphadenitis of the face, head and neck and prescribed Augmentin 875 mg by mouth twice daily for 10 days. He reports that shortly after beginning antibiotic he had some swelling to his eyelids and nausea so he stopped taking antibiotic. His symptoms have persisted he had fever up to 101.7 as recently as 03/15 and today he returned to the ER for shortness of breath, fever and fatigue. It was noted that patient was in A-fib RVR upon arrival with a heart rate as high as 144, he remained normotensive temperature was 99.3. Additional labs were significant for a white blood cell count of 12.3 creatinine 1.31 glucose 163 initial lactate 2.8, down to 2.5 after fluids initial high sensitive troponin to 28.1, BNP 4324 AST 86 ALT 69 UA not concerning for urinary tract infection chest x-ray was negative for acute findings, CTA of the chest was also performed which revealed no pulmonary embolism or other acute process, suspected chronic lung changes. Subtle mild bilateral groundglass opacities probably sequela of remote viral pneumonia. 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 No sign of bacterial infection identified at this time. Will hold off on antibiotics, blood cultures were obtained. Allergies povidone-iodine [From Betadine] Allergy (Verified 12/08/11 20:14) Hives/Rash soap [From Betadine] Allergy (Verified 12/08/11 20:14) Hives/Rash Home Medications: NK [No Home Meds] 03/16/24 - Past Medical/Surgical History Has patient received pneumonia vaccine in the past: Yes Diabetic: No -: none -: Foot surgery x 2 , bunions -: internal hemorrhoids surgery Psychosocial/ Personal History: Patient lives at home with - Family History Mother -: Diabetes - Social History Smoking Status: Never smoker Alcohol use: Yes CD- Drugs: No Caffeine use: Yes Place of Residence: Home Review of Systems 10-point ROS is otherwise unremarkable General: Fever, Weakness, Malaise Respiratory: Shortness of Breath Physical Examination - Vital Signs Temperature: 98.3 F Blood Pressure: 115/84 Pulse: 123 Respirations: 28 Pulse Ox (%): 97 - Physical Exam General: Alert, In no apparent distress, Oriented x3 HEENT: Atraumatic, PERRLA, EOMI Neck: Supple, 2+ carotid pulse no bruit, No LAD Respiratory: Clear to auscultation bilaterally, Normal air movement Cardiovascular: Regular rate/rhythm, Normal S1 S2, Irregular heart rate/rhythm (A-fib, rate 120) Gastrointestinal: Normal bowel sounds, No tenderness Musculoskeletal: No tenderness Integumentary: No rashes Neurological: Normal speech, Normal strength at 5/5 x4 extr, Normal tone, Normal affect - Studies Laboratory Data (last 24 hrs) 03/16/24 03/16/24 03/16/24 09:28 09:28 09:28 WBC 12.30 H Hgb 17.2 Hct 51.1 H Plt Count 168 PT 11.8 INR 1.07 APTT 32.0 Sodium 132 L Potassium 3.4 L BUN 34 H Creatinine 1.31 H Glucose 163 H Total Bilirubin 1.4 H AST 86 H ALT 69 H Alkaline Phosphatase 64 Assessment and Plan - Plan Assessment: New onset atrial fibrillation with rapid ventricular response Fever, malaise ALINA Elevated aminotransferase levels Plan: New onset atrial fibrillation with rapid ventricular response [id number], will start aspirin Cardiology consulted, notified in the ED and will see patient Antiarrhythmic/rate control medications per cardiology Echocardiogram ordered Does drink around 3 cups of coffee per day, also occasionally has tea, sodas Denies recreational drug use Possibly has MELISSA but has not been tested, reports snoring Fever, malaise ALINA Elevated aminotransferase levels Reports he has been running fevers since 03/12 Also with fatigue, chills, subjective shortness of breath CTA chest negative for pulmonary was a more pneumonia Abdomen soft, nondistended and nontender Denies urinary symptoms No sign of bacterial infection at this time, possible viral illness Previously swabbed for COVID, strep Will repeat flu, COVID swab Blood cultures obtained in ED, follow Will hold off on antibiotics at this time Suspect ALINA/aminotransferase levels elevated from dehydration Repeat chemistry in the morning, continue IV fluids overnight DVT PPX: Lovenox Code status: Full Discharge Plan: Home Plan to discharge in: 24 Hours - Advance Directives Does patient have a Living Will: No Does patient have a Durable POA for Healthcare: No - Code Status/Comfort Care Code Status Assessed: Yes (Full code) Critical Care: No Time Spent Managing Pts Care (In Minutes): 70
[2024-03-16 13:52] VITALS: BMI 31.5
[2024-03-16] MEDS ORDERED: AMIODARONE HCL 150 MG in D5W 100 ML IV STA (14:53)
[2024-03-16] MEDS: AMIODARONE HCL 150 MG in D5W 100 ML IV STA (14:55)
--- NOTE | 2024-03-16 14:56 | P.CNS ---
Date of Consult: 03/16/24 Chief Complaint: New onset A-fib with RVR History of Present Illness: Patient with no significant cardiac history, presented with fever/chills and started having palpitations, found to be in AF w RVR, denies having any other cardiac symptoms, no chest pain, no GONZÁLES, no syncope, he has been feeling ill for the last few days and was started on antibiotics. Allergies povidone-iodine [From Betadine] Allergy (Verified 12/08/11 20:14) Hives/Rash soap [From Betadine] Allergy (Verified 12/08/11 20:14) Hives/Rash Home Medications: NK [No Home Meds] 03/16/24 - Past Medical/Surgical History Diabetic: No -: none -: Foot surgery x 2 , bunions -: internal hemorrhoids surgery Psychosocial/ Personal History: Patient lives at home with - Family History Mother Medical History: Diabetes - Social History Alcohol use: Yes CD- Drugs: No Caffeine use: Yes Place of Residence: Home Review of Systems 10-point ROS is otherwise unremarkable Physical Examination Temp Pulse Resp BP Pulse Ox 98.3 F 123 H 28 H 115/84 97 03/16/24 13:42 03/16/24 13:42 03/16/24 13:42 03/16/24 13:42 03/16/24 13:42 General: Alert, In no apparent distress HEENT: Atraumatic, PERRLA, Mucous membr. moist/pink, EOMI, Sclerae nonicteric Neck: Supple, 2+ carotid pulse no bruit, No LAD, Without JVD or thyroid abnormality Respiratory: Clear to auscultation bilaterally, Normal air movement Cardiovascular: Irregular heart rate/rhythm Gastrointestinal: Normal bowel sounds, No tenderness Musculoskeletal: No tenderness Integumentary: No rashes Neurological: Normal gait, Normal speech, Normal tone, Normal affect Lymphatics: No axilla or inguinal lymphadenopathy Laboratory Data (last 24 hrs) 03/16/24 03/16/24 03/16/24 09:28 09:28 09:28 WBC 12.30 H Hgb 17.2 Hct 51.1 H Plt Count 168 PT 11.8 INR 1.07 APTT 32.0 Sodium 132 L Potassium 3.4 L BUN 34 H Creatinine 1.31 H Glucose 163 H Total Bilirubin 1.4 H AST 86 H ALT 69 H Alkaline Phosphatase 64 - Problems (1) Atrial fibrillation Current Visit: Yes Status: Acute Plan: Most likely secondary to acute illiness, EKG shows QTc 540 Start Amiodarone 150 mg IVx1 then continue drip Therapeutic Lovenox. Get Echo in am will consider AARTI DCCV once patient source of fever and leukocytosis IMPROVES. (2) NSTEMI (non-ST elevated myocardial infarction) Current Visit: Yes Status: Acute Plan: Patient denies having chest pain, EKG no significant ST-T wave changes, troponin mild elevated, most likely type 2 [place] in the settings of acute illness/AF Continue to trend troponin. therapeutic lovenox ASA 81 mg daily Lipitor 40 mg daily Get Echo in am. (3) Fever Current Visit: Yes Status: Acute Plan: work up for source.
[2024-03-16] MEDS ORDERED: AMIODARONE HCL 450 MG in D5W 241 ML IV SCH (15:30)
[2024-03-16] MEDS: NA CHLORIDE 0.9% 1,000 ML IV SCH (15:54)
[2024-03-16] MEDS: AMIODARONE HCL 150 MG in D5W 100 ML IV SCH (15:54)
[2024-03-16] MEDS: AMIODARONE HCL 900 MG in Dextrose 5%-Water 482 ML IV SCH (16:27)
[2024-03-16 17:04] LABS: INFLUENZA A NAA NEGATIVE (NEGATIVE); RESPIRATORY SYNCYTIAL VIR NAA NEGATIVE (NEGATIVE); SARS-COV-2 RT PCR NEGATIVE (NEGATIVE)
[2024-03-16] MEDS: ATORVASTATIN 40 MG TAB PO SCH (20:33)
[2024-03-16] MEDS: LORAZEPAM 1 MG TABLET PO ONE (21:21)
[2024-03-17 06:57] LABS: Absolute Basophils 0.1 K/uL (0-0.5); Absolute Eosinophils 0.1 K/uL (0-0.5); Absolute Lymphocytes (CBC) 1.2 K/uL (0.7-4.9); Absolute Monocytes 0.7 K/uL (0.1-1.3); Absolute Neutrophil 9.2 K/uL (1.8-8.0); Basophils % 0.5 % (0-1.3); Hematocrit 43.5 % (39.6-49.0); Hemoglobin 14.8 g/dL (13.6-17.9); MCH 30.2 pg (27.0-35.0); MCHC 33.9 g/dL (32.0-36.0); MCV 88.9 fL (80-100); MPV 8.5 fL (7.6-11.3); Monocytes % 5.9 % (3.3-12.3); Neutrophils % 81.6 % (41.7-73.7); Nucleated Red Blood Cells % 0.1 % (0-0); Platelets 145 thou/uL (152-406); Red Cell Distribution Width 14.1 % (12.1-15.2)
[2024-03-17] MEDS: ASPIRIN EC 81 MG TAB PO SCH (08:30)
[2024-03-17] MEDS: ENOXAPARIN 100 MG/ML SYR SQ SCH (08:30)
[2024-03-17 08:55] LABS: Albumin 2.2 g/dL (3.4-5.0); Albumin/Globulin Ratio 0.7 (1.1-1.8); Anion Gap 8.4 mEq/L (5.0-15.0); Bilirubin Total 1.3 mg/dL (0.2-1.0); Globulin 3.2 g/dL (2.3-3.5); Magnesium 2.1 mg/dL (1.6-2.4); Potassium 3.4 mEq/L (3.5-5.1); Protein, Total 5.4 g/dL (6.4-8.2); Thyroid Stimulating Hormone 0.677 uIU/mL (0.358-3.740)
[2024-03-17] MEDS ORDERED: ENOXAPARIN 40 MG/0.4 ML SQ SCH (09:00)
--- NOTE | 2024-03-17 11:33 | P.PN ---
Subjective Date of Service: 03/17/24 Chief Complaint: New onset A-fib with RVR Subjective: No new changes, No C/O voiced, Tolerating diet, Ambulating, Improving Review of Systems 10-point ROS is otherwise unremarkable Physical Examination - Vital Signs Temperature: 98.5 F Blood Pressure: 122/83 Pulse: 102 Respirations: 24 Pulse Ox (%): 96 - Physical Exam General: Alert, In no apparent distress HEENT: Atraumatic, PERRLA, EOMI Neck: Supple, JVD not distended Respiratory: Normal air movement, Crackles/rales Cardiovascular: Irregular heart rate/rhythm Gastrointestinal: Normal bowel sounds, No tenderness Musculoskeletal: No tenderness Integumentary: No rashes Neurological: Normal speech, Normal tone, Normal affect Lymphatics: No axilla or inguinal lymphadenopathy - Studies Medications List Reviewed: Yes Assessment And Plan - Current Problems (Diagnosis) (1) Atrial fibrillation Current Visit: Yes Status: Acute Plan: Most likely secondary to acute illiness, EKG shows QTc 540 On amiodarone drip, still in RVR Therapeutic Lovenox. NPO for AARTI DCCV in am (2) NSTEMI (non-ST elevated myocardial infarction) Current Visit: Yes Status: Acute Plan: Patient denies having chest pain, EKG no significant ST-T wave changes, troponin mild elevated, most likely type 2 [place] in the settings of acute illness/AF Continue to trend troponin. therapeutic lovenox ASA 81 mg daily Lipitor 40 mg daily NPO after midnight for coronary angiogram in am after the AARTI DCCV. (3) Fever Current Visit: Yes Status: Acute Plan: work up for source. (4) Bilateral lower extremity edema Current Visit: Yes Status: Acute Plan: start patient on Lasix 40 mg po BID Monitor input and output and electrolytes.
--- NOTE | 2024-03-17 12:05 | EKG ---
Test Date: 2024-03-16 Test Time: 09:13:44 Alodize Machine Helper: ELIAZAR MEASUREMENT RESULTS: Intervals: Rate: 145 MO: QRSD: 84 QT: 338 QTc: 525 [place]: P: MO: QRS: -19 T: 46 INTERPRETIVE STATEMENTS: Atrial fibrillation Abnormal ECG Compared to ECG 04/16/2020 10:54:49 Sinus rhythm no longer present Left ventricular hypertrophy no longer present ST (T wave) deviation no longer present Electronically Signed On 03-17-24 12:03:16 CDT by Daryl Guzman
[2024-03-17] MEDS: FUROSEMIDE 40 MG TABLET PO SCH (12:24)
--- NOTE | 2024-03-17 13:34 | ECHO ---
HEIGHT: 5 ft 10 in WEIGHT: 220 lb 0 oz DATE OF STUDY: 03/17/[address]: Daryl Guzman MD 2-DIMENSIONAL: YES M.MODE: YES DOPPLER: YES COLOR FLOW: YES TDS: YES PORTABLE: YES DEFINITY: BUBBLE STUDY: DIAGNOSIS: NEW ONSET ATRIAL FIBRILLATION CARDIAC HISTORY: CATHERIZATION: NO SURGERY: NO PROSTHETIC VALVE: NO PACEMAKER: NO MEASUREMENTS (cm) DIASTOLIC (NORMALS) SYSTOLIC (NORMALS) IVSd 1.0 (0.6-1.2) LA Diam 2.9 (1.9-4.0) LVEF 40-50% LVIDd 5.4 (3.5-5.7) LVIDs 4.5 (2.0-3.5) %FS 16% LVPWd 1.1 (0.6-1.2) Ao Diam 3.4 (2.0-3.7) 2 DIMENSIONAL ASSESSMENT: RIGHT ATRIUM: NORMAL LEFT ATRIUM: NORMAL RIGHT VENTRICLE: NORMAL LEFT VENTRICLE: MILD DILATED TRICUSPID VALVE: TRACE TRICUSPID REGURGITATION MITRAL VALVE: MILD MITRAL REGURGITATION PULMONIC VALVE: NORMAL AORTIC VALVE: NORMAL PERICARDIAL EFFUSION: SMALL CIRCUMFRENTIAL AORTIC ROOT: NORMAL LEFT VENTRICULAR WALL MOTION: MILD GLOBAL HYPOKINESIS DOPPLER/COLOR FLOW: DIASTOLIC DYSFUNCTION COMMENTS: 1. HARD TO ESTIMATE EXACT EJECTION FRACTION DUE TO ARRHYTHMIA, BUT MILD REDUCED LEFT VENTRICULAR SYSTOLIC FUNCTION (EJECTION FRACTION 40-50%), MILD GLOBAL HYPOKINESIS 2. DIASTOLIC DYSFUNCTION 3. MILD ELEVATED FILLING PRESSURE (RIGHT ATRIAL PRESSURE 15-20 mmHg) 4. MILD MITRAL REGURGITATION 5. SMALL CIRCUMFRENTIAL PERICARDIAL EFFUSION TECHNOLOGIST: MARIVEL FARRIS
[2024-03-17] MEDS: AMIODARONE HCL 900 MG in Dextrose 5%-Water 482 ML IV SCH (16:37)
--- NOTE | 2024-03-17 17:58 | P.PN ---
Date of Service: 03/17/24 Subjective Reports feeling better, confused why he has a fever Reports no wounds to his skin, no known injuries that he can remember ROS 10 point ROS as noted above, otherwise negative Physical Exam General: Alert and oriented x 3, NAD, febrile HEENT: Atraumatic, PERRLA, EOMI Neck: Supple, 2+ carotid pulse no bruit, No LAD Respiratory: Clear to auscultation bilaterally, Normal air movement Cardiovascular: Normal S1 S2, Irregular heart rate/rhythm (A-fib, rate 120) Gastrointestinal: Normal bowel sounds, No tenderness, distended (obese) Musculoskeletal: No tenderness, 2+ peripheral pulses Integumentary: No rashes Neurological: Normal speech, Normal strength at 5/5 x4 extr, Normal tone, Normal affect Vitals Reviewed Assessment: New onset atrial fibrillation with rapid ventricular response Fever, malaise ALINA Elevated aminotransferase levels Plan: New onset atrial fibrillation with rapid ventricular response [id number], continue aspirin Cardiology consulted, continue amiodarone drip, suspect acute illness causing atrial fibrillation Antiarrhythmic/rate control medications per cardiology Echocardiogram report" estimated EF 40 to 50%, diastolic dysfunction, mild mitral regurgitation, small circumferential pericardial effusion." Does drink around 3 cups of coffee per day, also occasionally has tea, sodas Denies recreational drug use Possibly has MELISSA but has not been tested, reports snoring NPO after midnight for cardioversion in the AM Fever, malaise ALINA Elevated aminotransferase levels Reports he has been running fevers since 03/12, still with a fever today 03/17 Also with fatigue, chills, subjective shortness of breath CTA chest negative for pulmonary was a more pneumonia Abdomen soft, nondistended and nontender Denies urinary symptoms No sign of bacterial infection at this time, possible viral illness Previously swabbed for COVID, strep Negative on repeat flu, COVID swab 03/16 Blood cultures obtained in ED, NGTD Will hold off on antibiotics at this time Suspect ALINA/aminotransferase levels elevated from dehydration Monitor chemistry daily, continue IV fluids overnight DVT PPX: Lovenox Code status: Full Discharge Plan: Home Plan to discharge in: 24 Hours
[2024-03-17] MEDS: LORAZEPAM 1 MG TABLET PO ONE (20:38)
[2024-03-18 06:56] LABS: Absolute Basophils 0.1 K/uL (0-0.5); Absolute Eosinophils 0.2 K/uL (0-0.5); Absolute Lymphocytes (CBC) 2.1 K/uL (0.7-4.9); Absolute Monocytes 1.1 K/uL (0.1-1.3); Absolute Neutrophil 6.8 K/uL (1.8-8.0); Basophils % 1.1 % (0-1.3); Eosinophils % 2.4 % (0-4.4); Hematocrit 43.8 % (39.6-49.0); Hemoglobin 15.2 g/dL (13.6-17.9); Lymphocytes % 20.1 % (15.3-44.8); MCH 30.1 pg (27.0-35.0); MCHC 34.6 g/dL (32.0-36.0); MPV 7.7 fL (7.6-11.3); Monocytes % 10.3 % (3.3-12.3); Neutrophils % 66.1 % (41.7-73.7); Nucleated Red Blood Cells % 0.4 % (0-0); Platelets 202 thou/uL (152-406); RBC Red Blood Cell Count 5.04 M/uL (4.33-5.43)
[2024-03-18 07:16] LABS: Albumin 2.3 g/dL (3.4-5.0); Albumin/Globulin Ratio 0.7 (1.1-1.8); Anion Gap 8.9 mEq/L (5.0-15.0); Bilirubin Total 0.9 mg/dL (0.2-1.0); Globulin 3.5 g/dL (2.3-3.5); Potassium 2.9 mEq/L (3.5-5.1); Protein, Total 5.8 g/dL (6.4-8.2)
[2024-03-18] MEDS: POTASSIUM CL SA 10 MEQ TAB PO ONE (07:58)
[2024-03-18] MEDS: NA CHLORIDE 0.9% 500 ML ONE (08:07)
[2024-03-18] MEDS: ATROPINE SULF 1 MG/10 ML SYR IV ONE (08:07)
[2024-03-18] MEDS ORDERED: propofoL 200 MG/20 ML VIAL IV ONE (08:33)
[2024-03-18] MEDS ORDERED: LIDOCAINE 2% MPF 5 ML VIAL ONE (08:33)
[2024-03-18 08:35] LABS: Blood Morphology Comment NOT SEEN (NOT SEEN); Platelet Estimate ADEQ; White Blood Cell Scan OK (OK)
[2024-03-18] MEDS: SUCCINYLCHOLINE 20 MG/ML (10 ML) IV ONE (08:40)
[2024-03-18] MEDS ORDERED: FENTANYL CITR 100 MCG/2 ML ONE (08:57)
[2024-03-18] MEDS ORDERED: LIDOCAINE 1% 20 ML MDV ONE (08:57)
[2024-03-18] MEDS ORDERED: HEPA 1000U/500MLS 2,000 UNIT/1,000 ML BAG IV ONE (08:57)
[2024-03-18] MEDS ORDERED: VERAPAMIL HCL 10 MG/4 ML VIAL IV ONE (08:57)
[2024-03-18] MEDS ORDERED: HEPARIN 5000 UNIT/ML 1 ML VIAL ONE (08:58)
[2024-03-18] MEDS ORDERED: MIDAZOLAM HCL 2 MG/2 ML INJ ONE (08:58)
[2024-03-18] MEDS ORDERED: ATROPINE SULF 1 MG/10 ML SYR IV ONE (08:58)
[2024-03-18] MEDS ORDERED: TICAGRELOR 90 MG TABLET PO ONE (08:58)
[2024-03-18] MEDS ORDERED: HEPARIN 10,000 UNIT/10 ML VIAL IV ONE (08:58)
[2024-03-18] MEDS ORDERED: ASPIRIN 325 MG TAB ONE (08:59)
[2024-03-18] MEDS ORDERED: CLOPIDOGREL 75 MG TABLET ONE (08:59)
[2024-03-18] MEDS ORDERED: NALOXONE 0.4 MG/ML VIAL ONE (08:59)
[2024-03-18] MEDS ORDERED: FLUMAZENIL 0.1 MG/ML (5 mL VIAL) IV ONE (08:59)
[2024-03-18] MEDS ORDERED: METHYLPREDNISOLONE 125 MG INJ ONE (09:50)
[2024-03-18] MEDS ORDERED: DIPHENHYDRAMINE 50 MG/ML VIAL ONE (09:50)
[2024-03-18] MEDS: AMIODARONE HCL 150 MG in D5W 100 ML IV STA (10:45)
--- NOTE | 2024-03-18 12:15 | P.PN ---
Subjective Date of Service: 03/18/24 Chief Complaint: New onset A-fib with RVR Subjective: No new changes, No C/O voiced, Tolerating diet, Ambulating, Improving Review of Systems 10-point ROS is otherwise unremarkable Physical Examination - Vital Signs Temperature: 96.9 F Blood Pressure: 107/75 Pulse: 96 Respirations: 16 Pulse Ox (%): 95 - Physical Exam General: Alert, In no apparent distress HEENT: Atraumatic, PERRLA, EOMI Neck: Supple, JVD not distended Respiratory: Clear to auscultation bilaterally, Normal air movement Cardiovascular: Irregular heart rate/rhythm Gastrointestinal: Normal bowel sounds, No tenderness Musculoskeletal: No tenderness Integumentary: No rashes Neurological: Normal speech, Normal tone, Normal affect Lymphatics: No axilla or inguinal lymphadenopathy - Studies Medications List Reviewed: Yes Assessment And Plan - Current Problems (Diagnosis) (1) Atrial fibrillation Current Visit: Yes Status: Acute Plan: Most likely secondary to acute illiness, EKG shows QTc 540 On amiodarone drip, Tried AARTI DCCV today but patient went back into AF, bolused again with amiodaorne 150 mg x1, advise to continue drip overnight then switch to 200 mg po BID in am Therapeutic Lovenox. will need to be discharged on Eliquis 5 mg po BID (2) NSTEMI (non-ST elevated myocardial infarction) Current Visit: Yes Status: Acute Plan: Patient denies having chest pain, EKG no significant ST-T wave changes, troponin mild elevated, most likely type 2 [place] in the settings of acute illness/AF Patient coronary angiogram done today and shows normal coronaries with mild elevated filling pressure therapeutic lovenox ASA 81 mg daily Lipitor 40 mg daily (3) Fever Current Visit: Yes Status: Acute Plan: work up for source. (4) Bilateral lower extremity edema Current Visit: Yes Status: Acute Plan: Heart cath shows mild elevated filling pressure, continue Lasix 40 mg po BID Monitor input and output and electrolytes.
--- NOTE | 2024-03-18 12:59 | TEE ---
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 NORMAL LEFT ATRIAL APPENDAGE, NO CLOT. 2. MILD MITRAL REGURGITATION TECHNOLOGIST: MARIVEL FARRIS
--- NOTE | 2024-03-18 15:03 | P.PN ---
Date of Service: 03/18/24 Subjective Attempted cardioversion this AM Feeling ok, afebrile No new complaints ROS 10 point ROS as noted above, otherwise negative Physical Exam General: Alert and oriented x 3, NAD HEENT: Atraumatic, PERRLA, EOMI Neck: Supple, 2+ carotid pulse no bruit, No LAD Respiratory: Clear to auscultation bilaterally, Normal air movement Cardiovascular: Normal S1 S2, Irregular heart rate/rhythm (A-fib, rate 107) Gastrointestinal: Normal bowel sounds, No tenderness, distended (obese) Musculoskeletal: No tenderness, 2+ peripheral pulses Integumentary: No rashes Neurological: Normal speech, Normal strength at 5/5 x4 extr, Normal tone, Normal affect Vitals Reviewed Assessment: New onset atrial fibrillation with rapid ventricular response Prolonged QTC Mild mitral regurgitation Fever, malaise ALINA Elevated aminotransferase levels Plan: New onset atrial fibrillation with rapid ventricular response Prolonged QTC Mild mitral regurgitation QTc 540, hold all medications that prolong QT [id number], continue aspirin Cardiology consulted,Cardioversion failed 03/18, continue with Amio infusion will transition to PO amio in the AM Antiarrhythmic/rate control medications per cardiology Echocardiogram report" estimated EF 40 to 50%, diastolic dysfunction, mild mitral regurgitation, small circumferential pericardial effusion." Does drink around 3 cups of coffee per day, also occasionally has tea, sodas Denies recreational drug use Possibly has MELISSA but has not been tested, reports snoring Fever, malaise ALINA Elevated aminotransferase levels Reports he has been running fevers since 03/12, still with a fever today 03/17 Also with fatigue, chills, subjective shortness of breath CTA chest negative for pulmonary was a more pneumonia Abdomen soft, nondistended and nontender Denies urinary symptoms No sign of bacterial infection at this time, possible viral illness Previously swabbed for COVID, strep Negative on repeat flu, COVID swab 03/16 Blood cultures obtained in ED, NGTD Will hold off on antibiotics at this time Suspect ALINA/aminotransferase levels elevated from dehydration Monitor chemistry daily, continue IV fluids overnight DVT PPX: Lovenox, will change to Eliquis 03/19 Code status: Full Discharge Plan: Home Plan to discharge in: 24 Hours
--- NOTE | 2024-03-18 22:02 | OP ---
Date of Procedure: 03/18/2024 Surgeon: Daryl Guzman Procedures Performed: 1.Left heart catheterization. 2.Coronary angiogram. Indication For Procedure: Awo-SO-bgnmbqlqi CA. Complications: None. Sedation Time: 20 minutes. Access: Right radial, closed by TR band. Estimated Blood Loss: Less than 50 cc. Description Of Procedure: After risks, benefits, and alternatives were explained to the patient, the patient agreed to proceed with the procedure and signed informed consent. The patient was brought b [facility] to the shipyard laborer, prepped and draped in a sterile fashion. A time-out was performed. Sedation wa s administered. Right radial access, ultrasound-guided micropuncture technique was obtained. A ScoreBige r 4 catheter was advanced to the LV cavity. EDP was obtained. Pullback did not show any gradient. Same catheter was used for selective coronary angiogram of the left and right coronary systems. Then , the catheter was removed over a J-wire. The sheath was removed and TR band was applied. Hemostasi s was achieved. The patient was moved back to Recovery in stable condition. Findings: 1.Left main normal. 2.LAD normal. 3.Left circ dominant, normal. 4.RCA, small, nondominant, normal. 5.LVEDP 15 mmHg. Assessment And Plan: 1.Normal coronaries. 2.Continue medical management for CAD. OK/TESFAYE Voice ID: [id number] Report ID: [id number]
--- NOTE | 2024-03-18 22:08 | OP ---
Date of Procedure: 03/18/2024 Surgeon: Daryl Guzman Procedure Performed: AARTI cardioversion. Indication For Procedure: Atrial fibrillation. Complications: None. Estimated Blood Loss: None. Sedation: Sedation was done by Anesthesia Team. Description Of Procedure: After risks, benefits, and alternatives were explained to the patient, the patient agreed to proceed with the procedure and signed informed consent. The patient was brought b k to the OR. Time-out was performed. Sedation was administered by Anesthesia Team. AARTI probe was inserted. Images were obtained. AARTI probe was removed and no complications. The patient's synchro nized cardioversion was done with 200 joules. The patient converted to sinus rhythm at the time of t he procedure, but 5 minutes after, the patient went back into atrial fibrillation again, so we will c nubiaue to observe. Assessment And Plan: AARTI-guided cardioversion for atrial fibrillation. The patient temporally went into sinus rhythm, but he went back into atrial fibrillation after waking up from sedation. The plan will be to continue medical management and rhythm control strategies. JIMENEZ Voice ID: [id number] Report ID: [id number]
[2024-03-19] MEDS: ZOLPIDEM TARTRATE 5 MG TABLET PO PRN (01:12)
[2024-03-19 04:44] VITALS: TEMP 97.1
[2024-03-19 05:41] VITALS: O2SAT 94
[2024-03-19 07:27] LABS: Absolute Basophils 0.1 K/uL (0-0.5); Absolute Lymphocytes (CBC) 1.6 K/uL (0.7-4.9); Absolute Monocytes 1.2 K/uL (0.1-1.3); Absolute Neutrophil 12.1 K/uL (1.8-8.0); Basophils % 0.8 % (0-1.3); Hematocrit 43.7 % (39.6-49.0); Hemoglobin 14.8 g/dL (13.6-17.9); Lymphocytes % 10.5 % (15.3-44.8); MCH 29.7 pg (27.0-35.0); MCHC 33.8 g/dL (32.0-36.0); MCV 87.8 fL (80-100); MPV 7.9 fL (7.6-11.3); Monocytes % 8.2 % (3.3-12.3); Neutrophils % 80.5 % (41.7-73.7); Platelets 296 thou/uL (152-406); RBC Red Blood Cell Count 4.98 M/uL (4.33-5.43)
[2024-03-19 07:52] LABS: Albumin 2.4 g/dL (3.4-5.0); Albumin/Globulin Ratio 0.7 (1.1-1.8); Anion Gap 7.4 mEq/L (5.0-15.0); Bilirubin Total 0.6 mg/dL (0.2-1.0); Globulin 3.6 g/dL (2.3-3.5); Magnesium 2.1 mg/dL (1.6-2.4); Potassium 3.4 mEq/L (3.5-5.1)
--- NOTE | 2024-03-19 08:51 | P.DS ---
Admission Date: 03/16/24 Discharge Date: 03/19/24 Disposition: ROUTINE DISCHARGE Discharge Condition: FAIR Reason for Admission: New onset A-fib with RVR Brief History of Present Illness: Diagnosis New onset atrial fibrillation with rapid ventricular response Prolonged QTC Mild mitral regurgitation Fever, malaise ALINA Elevated aminotransferase levels HPI 03/16/2024 Richard Dawson is a 63-year-old otherwise healthy male presents emergency department with chief complaint of flulike symptoms, malaise/fevers. He was seen in the emergency department on 03/13 and diagnosed with acute lymphadenitis of the face, head and neck and prescribed Augmentin 875 mg by mouth twice daily for 10 days. He reports that shortly after beginning antibiotic he had some swelling to his eyelids and nausea so he stopped taking antibiotic. His symptoms have persisted he had fever up to 101.7 as recently as 03/15 and today he returned to the ER for shortness of breath, fever and fatigue. It was noted that patient was in A-fib RVR upon arrival with a heart rate as high as 144, he remained normotensive temperature was 99.3. Additional labs were significant for a white blood cell count of 12.3 creatinine 1.31 glucose 163 initial lactate 2.8, down to 2.5 after fluids initial high sensitive troponin to 28.1, BNP 4324 AST 86 ALT 69 UA not concerning for urinary tract infection chest x-ray was negative for acute findings, CTA of the chest was also performed which revealed no pulmonary embolism or other acute process, suspected chronic lung changes. Subtle mild bilateral groundglass opacities probably sequela of remote viral pneumonia. 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 No sign of bacterial infection identified at this time. Will hold off on antibiotics, blood cultures were obtained. Hospital Course: Richard Dawson is a pleasant 63-year-old male with a no significant past medical history who was admitted to the [facility] on 03/16/2024 for flulike symptoms, malaise, fever. Richard Dawson presented to the ED with chief complaint of flu-like symptoms, mailase and fever, during this admission, Atrial fibrillation was noted and cardiology was consulted. Attempt to cardiovert the atrial fibrillation rhythm on 03/18 was unsuccessful. Blood cultures remained negative, afebrile overnight, and cath requested discharge at this time. He is tolerating p.o. diet, ambulating independently, and hemodynamically stable for discharge. Please use the medications provided to your pharmacy for continued heart rhythm management. Please follow up with Dr. Guzman in one week for further medication instructions. On 03/19/2024, Richard was seen on morning rounds and deemed medically stable for discharge. Richard was discharged with instructions to schedule follow-up appointments with PCP and Dr. Guzman. Richard was provided prescriptions for aspirin, amiodarone, Eliquis, Lasix, Lipitor, and potassium. The patient and family members were given the opportunity to ask questions and reported no further questions. Furthermore, all questions were answered to the best of my ability. A copy of this discharge summary will be sent to the above providers to facilitate continuity of care. Physical Exam General: AAO x 3, no acute distress, comfortable HEENT: Atraumatic, PERRLA, EOMI Neck: Supple, 2+ carotid pulse no bruit, No LAD Respiratory: Clear to auscultation bilaterally, Normal air movement, on room air Cardiovascular: Normal S1 S2, atrial fibrillation with controlled heart rate Gastrointestinal: Normal active bowel sounds, No tenderness, distended (obese) Musculoskeletal: No tenderness, 2+ peripheral pulses Integumentary: No rashes Neurological: Normal speech, Normal strength at 5/5 x4 extr, Normal tone, Normal affect Vital Signs/Physical Exam: Temp Pulse Resp BP Pulse Ox 97.1 F 73 18 112/78 94 03/19/24 06:00 03/19/24 06:00 03/19/24 06:00 03/19/24 06:00 03/19/24 04:00 Laboratory Data at Discharge: WBC 15.00 thou/uL (4.3-10.9) H 03/19/24 07:12 Hgb 14.8 g/dL (13.6-17.9) 03/19/24 07:12 Hct 43.7 % (39.6-49.0) 03/19/24 07:12 Plt Count 296 thou/uL (152-406) D 03/19/24 07:12 PT 11.8 SECONDS (9.5-12.5) 03/16/24 09:28 INR 1.07 03/16/24 09:28 APTT 32.0 SECONDS (24.3-36.9) 03/16/24 09:28 Sodium 139 mEq/L (136-145) D 03/19/24 07:12 Potassium 3.4 mEq/L (3.5-5.1) L D 03/19/24 07:12 BUN 19 mg/dL (7-18) H 03/19/24 07:12 Creatinine 0.86 mg/dL (0.70-1.30) 03/19/24 07:12 Glucose 139 mg/dL (74-106) H 03/19/24 07:12 Magnesium 2.1 mg/dL (1.6-2.4) 03/19/24 07:12 Total Bilirubin 0.6 mg/dL (0.2-1.0) 03/19/24 07:12 AST 84 U/L (15-37) H 03/19/24 07:12 ALT 79 U/L (16-61) H 03/19/24 07:12 Alkaline Phosphatase 86 U/L (45-117) D 03/19/24 07:12 Home Medications: Amiodarone HCl [Cordarone*] 200 mg PO BID 30 Days #60 tab 03/19/24 Apixaban [Eliquis] 5 mg PO BID 30 Days #60 tab 03/19/24 Aspirin [Aspirin EC 81 MG] 81 mg PO DAILY 30 Days #30 tab 03/19/24 Atorvastatin Calcium [Lipitor] 40 mg PO BEDTIME 30 Days #30 tab 03/19/24 Furosemide [Lasix*] 40 mg PO BIDL 30 Days #60 tab 03/19/24 Potassium Chloride [K-Dur] 20 meq PO DAILY 30 Days #30 tab 03/19/24 New Medications: Aspirin [Aspirin EC 81 MG] 81 mg PO DAILY 30 Days #30 tab Amiodarone HCl [Cordarone*] 200 mg PO BID 30 Days #60 tab Apixaban [Eliquis] 5 mg PO BID 30 Days #60 tab Potassium Chloride [K-Dur] 20 meq PO DAILY 30 Days #30 tab Furosemide [Lasix*] 40 mg PO BIDL 30 Days #60 tab Atorvastatin Calcium [Lipitor] 40 mg PO BEDTIME 30 Days #30 tab Physician Discharge Instructions: Richard Dawson presented to the ED with chief complaint of mailase and fever, during this admission, Atrial fibrillation was noted and cardiology was consulted. Attempt to cardiovert the atrial fibrillation rhythm on 03/18 was unsuccessful. Please use the medications provided to your pharmacy for continued heart rhythm management. Please follow up with Dr. Guzman in one week for further medication instructions. 1. Please call and schedule a follow-up appointment with your PCP in 3-5 days - Please follow-up with your PCP for medication refills/adjustments 2. Please call and schedule a follow-up appointment with Dr. Guzman in one week - Dr. Guzman will further direct your medications listed below. 30 day supply has been ordered but anticipate changes after visiting Dr. Guzman in one week 3. Continue heart healthy diet 4. No activity restrictions 5. Return to the ED if symptoms worsen New medications Aspirin 81 mg daily x 30 days Amiodarone 200 mg twice daily x 30 days Eliquis 5 mg PO twice daily x 30 days Lasix 40 mg PO twice daily x 30 days potassium 20 mEq daily x 30 days Followup: Jarred Pablo DO, DO [Primary Care Provider] - Daryl Guzman MD [ACTIVE - CAN ADMIT] -
[2024-03-19] MEDS: APIXABAN 5 MG TABLET PO SCH (09:47)
[2024-03-19 09:48] VITALS: BP 119/77
[2024-03-19] MEDS: AMIODARONE HCL 200 MG TAB PO SCH (09:48)
--- NOTE | 2024-03-19 10:11 | P.PN ---
Subjective Date of Service: 03/19/24 Chief Complaint: New onset A-fib with RVR Subjective: No new changes (Patient is in sinus rhythm this morning), No C/O voiced, Tolerating diet, Ambulating, Improving Review of Systems 10-point ROS is otherwise unremarkable Physical Examination - Vital Signs Temperature: 97.1 F Blood Pressure: 119/77 Pulse: 75 Respirations: 18 Pulse Ox (%): 94 - Physical Exam General: Alert, In no apparent distress HEENT: Atraumatic, PERRLA, EOMI Neck: Supple, JVD not distended Respiratory: Clear to auscultation bilaterally, Normal air movement Cardiovascular: Regular rate/rhythm, Normal S1 S2 Gastrointestinal: Normal bowel sounds, No tenderness Musculoskeletal: No tenderness Integumentary: No rashes Neurological: Normal speech, Normal tone, Normal affect Lymphatics: No axilla or inguinal lymphadenopathy - Studies Medications List Reviewed: Yes Assessment And Plan - Current Problems (Diagnosis) (1) Atrial fibrillation Current Visit: Yes Status: Acute Plan: Most likely secondary to acute illiness, EKG shows QTc 540 On amiodarone drip, Tried AARTI DCCV today but patient went back into AF, bolused again with amiodaorne 150 mg x1 switch amiodarone to 200 mg po BID Therapeutic Lovenox. will need to be discharged on Eliquis 5 mg po BID (2) NSTEMI (non-ST elevated myocardial infarction) Current Visit: Yes Status: Acute Plan: Patient denies having chest pain, EKG no significant ST-T wave changes, troponin mild elevated, most likely type 2 NE in the settings of acute illness/AF Patient coronary angiogram done on 03/2024 and shows normal coronaries with mild elevated filling pressure D/C ASA Lipitor 40 mg daily (3) Fever Current Visit: Yes Status: Acute Plan: work up for source. (4) Bilateral lower extremity edema Current Visit: Yes Status: Acute Plan: Heart cath shows mild elevated filling pressure, switch Lasix to 40 mg daily on discharge. Monitor input and output and electrolytes.
--- NOTE | 2024-03-20 12:17 | EKG ---
Test Date: 2024-03-18 Test Time: 09:05:27 President And Chief Commercial Officer: BLANCO MEASUREMENT RESULTS: Intervals: Rate: 79 DE: QRSD: 110 QT: 502 QTc: 575 Thomas: P: 24 DE: QRS: -36 T: 34 INTERPRETIVE STATEMENTS: Marked sinus bradycardia with AV dissociation and Accelerated Junctional rhythm Left axis deviation Prolonged QT Abnormal ECG Compared to ECG 03/16/2024 09:13:44 Accelerated junctional rhythm now present AV dissociation now present Left-axis deviation now present Prolonged QT interval now present Atrial fibrillation no longer present Electronically Signed On 03-20-24 12:15:36 CDT by Daryl Guzman
== END 2024-03-19 10:50 | disposition home or self-care (01) | DRG 281 ==
LOC: ER 08:59 → ERHOLD 11:35 → 4TH 12:04 → OBSVTOIN 19:53
PROVIDERS: ADMIT Hospitalist; ATTEND Internal Medicine
PROC: 4A023N7 Measurement of Cardiac Sampling and Pressure, Left Heart, Percutaneous Approach (ICD-10-PCS; principal; 2024-03-18)
PROC: B2111ZZ Fluoroscopy of Multiple Coronary Arteries using Low Osmolar Contrast (ICD-10-PCS; 2024-03-18)
PROC: B24BZZ4 Ultrasonography of Heart with Aorta, Transesophageal (ICD-10-PCS; 2024-03-18)
PROC: 5A2204Z Restoration of Cardiac Rhythm, Single (ICD-10-PCS; 2024-03-18)
DX: I48.91 Unspecified atrial fibrillation (principal); E87.1 Hypo-osmolality and hyponatremia; I21.A1 Myocardial infarction type 2; E87.21 Acute metabolic acidosis; N17.9 Acute kidney failure, unspecified; E86.0 Dehydration; I34.0 Nonrheumatic mitral (valve) insufficiency; T50.2X5A Adverse effect of carbonic-anhydrase inhibitors, benzothiadiazides and other diuretics, initial encounter; R60.9 Edema, unspecified; R94.31 Abnormal electrocardiogram [ECG] [EKG]; R79.89 Other specified abnormal findings of blood chemistry; Z11.52 Encounter for screening for COVID-19; Z79.82 Long term (current) use of aspirin; Z79.01 Long term (current) use of anticoagulants; Z79.899 Other long term (current) drug therapy
CPT/HCPCS: 0241U; 36415; 71045; 71275; 76937; 80053; 81001; 82550; 82947; 83605; 83735; 83880; 84439; 84443; 84484; 85025; 85610; 85730; 87040; 92960; 93005; 93306; 93312; 93458; 96365; 96366; 96372; 99285; C1893; G0378; J0282; J0461; J1200; J1644; J1650; J2001; J2250; J2310; J2704; J2919; J3010; J7030; J7040; J7060; Q9966; Q9967